=== PATIENT | male | born 1970 | race Caucasian/White ===

== ENCOUNTER 2016-10-03 12:46 | Emergency (ER) | payer OTHER ==
[2016-10-03 13:01] VITALS: TEMP 98.1
--- NOTE | 2016-10-03 13:35 | ED ---
General Adult HPI - General Chief complaint: Extremity Injury, Upper Stated complaint: Arm Pain Time Seen by Provider: 10/03/16 13:20 Source: patient, RN notes reviewed, old records reviewed Mode of arrival: ambulatory Limitations: no limitations - History of Present Illness Initial comments: Chief complaint and history of present illness is a 45-year-old male to complaint of injury to his right forearm. Patient reports her last night and I beam rolled over on his right forearm. Became significantly swollen. Place ice on it and took ibuprofen last night. Today complains discomfort from the wrist to the elbow area. Range of motion slightly decreased secondary to pain the mild swelling. Small amount of ecchymosis is noted on the volar surface at the wrist level. - Related Data Home Medications Medication Instructions Recorded Confirmed Ibuprofen [Motrin] 200 - 400 mg PO Q6HR PRN 07/06/16 07/06/16 Previous Rx's Medication Instructions Recorded traMADol HCl [Ultram] 50 mg PO Q6H PRN #20 tab 10/03/16 Allergies Allergy/AdvReac Type Severity Reaction Status Date / Time barium iodide AdvReac Swelling Verified 10/03/16 14:01 barium sulfate AdvReac Swelling Verified 10/03/16 14:01 Review of Systems ROS Statement: Those systems with pertinent positive or pertinent negative responses have been documented in the HPI. Review of systems no headache chest pain shows breath GI/ problems. His complaint is discomfort to the right forearm is noted in the chief complaint. All systems were otherwise reviewed. Past medical problems none. Surgeries appendectomy. Family history no cancers. Patient has ALLERGIES to barium. 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 ROS Other: All systems not noted in ROS Statement are negative. Past Medical History Past Medical History: No Reported History History of Any Multi-Drug Resistant Organisms: None Reported Past Surgical History: Appendectomy Past Psychological History: No Psychological Hx Reported Smoking Status: Current every day smoker Past Alcohol Use History: None Reported Past Drug Use History: None Reported General Exam - General Exam Comments Initial Comments: General: The patient is awake and alert, complaining of pain to his right forearm. Vital signs shows temperature 98.1 pulse 81 respiratory rate 20 pulse ox 94% room air blood pressure 138/88. Mildly elevated systolic diastolic noted. The patient was advised to follow-up with his family physician in the next 1-4 weeks discerning blood pressure issues. Also because of his right forearm injury. Eye: Pupils are equal, Ears, nose, mouth and throat: There are moist mucous membranes Neck: No complaint of neck pain or stiffness, lungs are without difficulty. Denies chest pain, shortness of breath, GI/ problems. Musculoskeletal: Normal ROM, tender mildly swollen right forearm. Patient reports his left hand dominant but because of previous thumb injury he is using his right arm more frequently. He reports the eye being rolled onto his right forearm was swollen last night. Applied ice. Take ibuprofen for pain. States he has some tingling to his fingertips. Able to open and close his hand family the fingers. Flex and extend at the wrist but with discomfort to the forearm. Small amount of bruising is noted on the volar surface over the wrist. Able to pronate and supinate. Able to flex and extend at the elbow. Neurological: Neurologically the patient is able to open and close his fingers flex his wrist and extend at the wrist. Palpable radial and ulnar arteries. Limitations: no limitations Course Vital Signs 10/03/16 12:59 Temperature 98.1 F Pulse Rate 81 Respiratory 20 Rate Blood Pressure 138/88 O2 Sat by Pulse 94 L Oximetry Medical Decision Making - Medical Decision Making X-ray of the right forearm was done and reviewed by radiologist's final impression is no acute fracture or dislocation as reported by Dr. Manuel Patient be placed on tramadol for pain and advised to use Motrin as well. Ice to the forearm advised to follow-up with his family physician concerning his blood pressure and forearm pain. He will be given the name of the on-call orthopedic surgeon if he develops numbness tingling or dysfunction. Currently no evidence of compartment syndrome. Disposition Clinical Impression: Contusion of right forearm, initial encounter Disposition: HOME SELF-CARE Condition: Stable Instructions: Arm Pain (ED), Crush Injury (ED) Additional Instructions: Follow-up with family physician concerning her blood pressure. Follow-up with family physician for reexamination of your right forearm. He developed numbness tingling or increased pain return emergency room or follow-up with on- call orthopedic surgeon Dr. Manuel Gudino. Use pain medication as prescribed. Prescriptions: traMADol HCl [Ultram] 50 mg PO Q6H PRN #20 tab PRN Reason: Pain Referrals: Michi Mcclure MD [Primary Care Provider] - 1-2 days Manuel Gudino MD [STAFF PHYSICIAN] - 1-2 days Time of Disposition: 15:00
--- NOTE | 2016-10-03 13:59 | XR ---
EXAMINATION TYPE: XR forearm RT DATE OF EXAM: 10/03/2016 1:56 PM COMPARISON: NONE HISTORY: Pain Two views of the forearm demonstrate that the osseous structures appear to be intact and the joint sp aces appear to be preserved. There is no acute fracture or dislocation. IMPRESSION: 1. No acute fracture or dislocation
[2016-10-03 15:08] VITALS: BP 137/78; PULSE 57; RESP 16
== END 2016-10-03 15:08 | disposition home or self-care (01) ==
LOC: EC 12:46
DX: S50.11XA Contusion of right forearm, initial encounter (principal); F17.200 Nicotine dependence, unspecified, uncomplicated; Z88.8 Allergy status to other drugs, medicaments and biological substances; W22.8XXA Striking against or struck by other objects, initial encounter
CPT/HCPCS: 99283

== ENCOUNTER 2016-10-07 12:40 | Emergency (ER) | payer OTHER ==
--- NOTE | 2016-10-07 15:14 | ED ---
General Adult HPI - General Chief complaint: Extremity Injury, Upper Stated complaint: RT ARM PAIN, PREVIOUS INJURY Time Seen by Provider: 10/07/16 15:03 Source: patient, RN notes reviewed Mode of arrival: ambulatory Limitations: no limitations - History of Present Illness Initial comments: Patient 45-year-old male who presents emergency room today with chief complaint of increased numbness tingling and pain to the right forearm and hand. Patient does admit to an injury that occurred approximately week ago. States that he was putting to IV was together when I been came pinched his right forearm. States was stuck like this for less than a minute. States he was able to push the IV back. Since he had it checked out had x-ray obtained. States he's noticed increased numbness tingling to the right hand. States worse today when he is out of the cold weather. Patient does admit that his had swelling that seemed to be worse at the end of the day. States out of pain medication that was given site little relief with ibuprofen and Ultram that he was prescribed. Patient denies any new injury or trauma. Denies any other complaints or symptoms. Patient denies any recent fever, chills, shortness of breath, chest pain, back pain, abdominal pain, nausea or vomiting, dysuria or hematuria, constipation or diarrhea, headaches or visual changes, or any other complaints. - Related Data Home Medications Medication Instructions Recorded Confirmed Ibuprofen [Motrin] 400 mg PO Q6HR PRN 07/06/16 10/07/16 Previous Rx's Medication Instructions Recorded traMADol HCl [Ultram] 50 mg PO Q6H PRN #20 tab 10/03/16 traMADol HCl [Ultram] 50 mg PO Q6H PRN #20 tab 10/07/16 Allergies Allergy/AdvReac Type Severity Reaction Status Date / Time barium iodide Allergy Anaphylaxis Verified 10/07/16 14:55 barium sulfate Allergy Anaphylaxis Verified 10/07/16 14:55 Review of Systems ROS Statement: Those systems with pertinent positive or pertinent negative responses have been documented in the HPI. ROS Other: All systems not noted in ROS Statement are negative. Past Medical History Past Medical History: No Reported History History of Any Multi-Drug Resistant Organisms: None Reported Past Surgical History: Appendectomy Past Psychological History: No Psychological Hx Reported Smoking Status: Current every day smoker Past Alcohol Use History: None Reported Past Drug Use History: None Reported General Exam - General Exam Comments Initial Comments: General: The patient is awake and alert, in no distress, and does not appear acutely ill. Neck: The neck is supple, there is no tenderness or JVD. Cardiovascular: There is a regular rate and rhythm. No murmur, rub or gallop is appreciated. Respiratory: Lungs are clear to auscultation, respirations are non-labored, breath sounds are equal. No wheezes, stridor, rales, or rhonchi. Musculoskeletal: Patient does have normal appearance of the right arm there is mild bruising to the volar aspect of the right forearm. Patient shows full range motional directions. No bony tenderness on exam. Sensations intact. Pulses equal bilaterally 2+. Cap refill less than 2 seconds. Neurological: A&O x 3. CN II-XII intact, There are no obvious motor or sensory deficits. Coordination appears grossly intact. Speech is normal. Skin: Skin is warm and dry and no rashes or lesions are noted. Psychiatric: Normal mood and affect. Limitations: no limitations Course Vital Signs 10/07/16 13:28 Temperature 98.2 F Pulse Rate 76 Respiratory 20 Rate Blood Pressure 136/67 O2 Sat by Pulse 97 Oximetry Medical Decision Making - Medical Decision Making Case discussed in detail with attending physician Dr. Hager. Patient's ultrasound negative for any evidence of DVT. Results were discussed with the patient. Patient advised to follow-up family doctor or orthopedics for further evaluation. Patient requesting pain medication here in the emergency room. He' ll be fried a short prescription of Ultram to continue as this morning was prescribed a few days ago. Advised continue anti-inflammatories continue to ice elevate the affected area. Advised return if any symptoms increase or worsen or for any other concerns. Disposition Clinical Impression: Paresthesia, Forearm contusion Disposition: HOME SELF-CARE Condition: Good Instructions: Contusion in Adults (ED) Additional Instructions: Please use medication as discussed. Please follow-up with family doctor/ orthopedics in the next 2 days of symptoms have not improved. Please return to emergency room if the symptoms increase or worsen or for any other concerns. Prescriptions: traMADol HCl [Ultram] 50 mg PO Q6H PRN #20 tab PRN Reason: Pain Referrals: Michi Mcclure MD [Primary Care Provider] - 1-2 days Dandre Bernstein MD [STAFF PHYSICIAN] - 1-2 days Time of Disposition: 15:53
--- NOTE | 2016-10-07 15:57 | US ---
EXAMINATION TYPE: US venous doppler duplex UE RT DATE OF EXAM: 10/07/2016 3:38 PM COMPARISON: NONE CLINICAL HISTORY: Pain. Numbness right hand, coldness right lower arm, pain right arm SIDE PERFORMED: right There is no evidence for filling defect. Normal compressibility and augmentation of flow. Right Arm: No evidence of DVT IMPRESSION: No evidence for DVT.
[2016-10-07 16:26] VITALS: BP 148/92; PULSE 72; RESP 18; TEMP 98
== END 2016-10-07 16:26 | disposition home or self-care (01) ==
LOC: EC 12:40
DX: S50.11XA Contusion of right forearm, initial encounter (principal); R20.2 Paresthesia of skin; W23.0XXA Caught, crushed, jammed, or pinched between moving objects, initial encounter; F17.200 Nicotine dependence, unspecified, uncomplicated; Z91.041 Radiographic dye allergy status
CPT/HCPCS: 99283

== ENCOUNTER → 2017-03-21 | Outpatient (CLI) | payer OTHER ==
--- NOTE | 2017-03-22 07:47 | EEG ---
DATE OF SERVICE: 03/21/2017 ELECTROENCEPHALOGRAPHIC EXAMINATION REPORT INDICATION FOR EXAMINATION: This patient is a 46-year-old male being evaluated for possible seizure disorder. Patient with multiple rib fractures following a fall with loss of consciousness. AGE: 46 EEG FINDINGS: A routine, 21 channel awake digital EEG recording was accomplished utilizing the 10 - 20 international system with bipolar and referential montages. The background activity in the most alert resting state consists of a low to medium amplitude, fairly well-developed and well-sustained 7 - 8 Hz activity over the posterior head regions. This posterior rhythm attenuates to eye opening. There is a small amount of low amplitude 18 - 20 Hz beta activity seen maximally over the anterior head regions. Muscle and movement artifact was observed on a few occasions during the tracing. Hyperventilation was not performed. Photic stimulation at flash frequencies of 2 - 30 Hz produced a minimal occipital driving response. No epileptiform discharges were seen. IMPRESSION: This EEG is within normal limits for the patient's age. The EEG failed to reveal any focal, lateralized, or epileptiform abnormalities. Clinical correlation is recommended. [facility]
== END ==
LOC: RADECHMAIN 12:19
PROVIDERS: ATTEND Family Medicine
DX: R55 Syncope and collapse (principal)
CPT/HCPCS: 93225; 93226; 95816

== ENCOUNTER 2017-12-04 13:15 | Emergency (ER) | payer OTHER ==
[2017-12-04 13:24] VITALS: RESP 18; TEMP 96.1
[2017-12-04] MEDS ORDERED: KETOROLAC 30 MG/ML 1 ML VIAL IVP STA ×2 (13:39→17:02)
[2017-12-04] MEDS ORDERED: SODIUM CHLORIDE 0.9% 1,000 ML IV STA (13:39)
--- NOTE | 2017-12-04 13:44 | ED ---
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 No problems since then he denies any hematuria no history kidney stones no abdominal surgeries no other modifying factors at this time he does state he does climb up and down ladders and does jump to the ground at times. He does not recall any discrete injury however. MD Complaint: abdominal pain, flank pain, other - Related Data Home Medications Medication Instructions Recorded Confirmed HYDROcodone/APAP 5-325MG [[place] 1 tab PO DAILY PRN 12/04/17 12/04/17 5-325] Ibuprofen [Motrin] 800 mg PO TID PRN 12/04/17 12/04/17 Previous Rx's Medication Instructions Recorded Doxycycline [Vibramycin] 100 mg PO Q12HR #28 capsule 12/04/17 Ibuprofen 800 mg PO Q6HR PRN #20 tablet 12/04/17 Allergies Allergy/AdvReac Type Severity Reaction Status Date / Time barium iodide Allergy Anaphylaxis Verified 12/04/17 13:30 barium sulfate Allergy Anaphylaxis Verified 12/04/17 13:30 Review of Systems ROS Statement: Those systems with pertinent positive or pertinent negative responses have been documented in the HPI. ROS Other: All systems not noted in ROS Statement are negative. Past Medical History Past Medical History: No Reported History History of Any Multi-Drug Resistant Organisms: None Reported Past Surgical History: Appendectomy Past Psychological History: No Psychological Hx Reported Smoking Status: Current every day smoker Past Alcohol Use History: Rare Past Drug Use History: None Reported General Exam - General Exam Comments Initial Comments: This is a well-developed well-nourished awake alert oriented 3 male Limitations: no limitations General appearance: alert, anxious Head exam: Present: atraumatic, normocephalic, normal inspection Eye exam: Present: normal appearance, PERRL, EOMI. Absent: scleral icterus, conjunctival injection, periorbital swelling ENT exam: Present: normal exam, mucous membranes moist Neck exam: Present: normal inspection. Absent: tenderness, meningismus, lymphadenopathy Respiratory exam: Present: normal lung sounds bilaterally. Absent: respiratory distress, wheezes, rales, rhonchi, stridor Cardiovascular Exam: Present: regular rate, normal rhythm, normal heart sounds. Absent: systolic murmur, diastolic murmur, rubs, gallop, clicks GI/Abdominal exam: Present: soft, tenderness (Mild tenderness palpation over the lower abdomen no guarding rebound masses bruits very mild flank tenderness palpation no specific CVA tenderness however.), normal bowel sounds. Absent: distended, guarding, rebound, rigid Rectal exam: Present: deferred exam: Present: testicular tenderness, scrotal swelling, circumcision, other ( Examination of the scrotum reveals 2 discrete burn sites from the injury from a week ago. Be healing well with no evidence of any erythema or drainage or discharge.) Extremities exam: Present: normal inspection, full ROM, normal capillary refill. Absent: tenderness, pedal edema, joint swelling, calf tenderness Back exam: Present: normal inspection Neurological exam: Present: alert, oriented X3, CN II-XII intact Psychiatric exam: Present: normal affect, normal mood Skin exam: Present: warm, dry, intact, normal color. Absent: rash Course Vital Signs 12/04/17 12/04/17 13:22 16:07 Temperature 96.1 F L Pulse Rate 86 77 Respiratory 18 18 Rate Blood Pressure 135/87 138/92 O2 Sat by Pulse 95 100 Oximetry Medical Decision Making - Medical Decision Making I did discuss the patient's findings be discharged on antibiotics and pain medication he'll receive his first dose in the emergency department. - Lab Data Result diagrams: 12/04/17 13:24 12/04/17 13:24 Lab Results 12/04/17 12/04/17 12/04/17 Range/Units 13:24 13:24 16:15 WBC 11.9 H (3.8-10.6) k/uL RBC 5.78 (4.30-5.90) m/uL Hgb 16.4 (13.0-17.5) gm/dL Hct 50.4 (39.0-53.0) % MCV 87.1 (80.0-100.0) fL MCH 28.4 (25.0-35.0) pg MCHC 32.6 (31.0-37.0) g/dL RDW 13.3 (11.5-15.5) % Plt Count 357 (150-450) k/uL Neutrophils % 79 % Lymphocytes % 14 % Monocytes % 4 % Eosinophils % 3 % Basophils % 1 % Neutrophils # 9.4 H (1.3-7.7) k/uL Lymphocytes # 1.6 (1.0-4.8) k/uL Monocytes # 0.4 (0-1.0) k/uL Eosinophils # 0.3 (0-0.7) k/uL Basophils # 0.1 (0-0.2) k/uL Sodium 142 (137-145) mmol/L Potassium 4.7 (3.5-5.1) mmol/L Chloride 105 (98-107) mmol/L Carbon Dioxide 26 (22-30) mmol/L Anion Gap 11 mmol/L BUN 21 H (9-20) mg/dL Creatinine 0.91 (0.66-1.25) mg/dL Est GFR (CKD-EPI)AfAm >90 (>60 ml/min/1.73 sqM) Est GFR (CKD-EPI)NonAf >90 (>60 ml/min/1.73 sqM) Glucose 83 (74-99) mg/dL Calcium 9.0 (8.4-10.2) mg/dL Total Bilirubin 0.3 (0.2-1.3) mg/dL AST 23 (17-59) U/L ALT 26 (21-72) U/L Alkaline Phosphatase 73 (38-126) U/L Total Protein 6.2 L (6.3-8.2) g/dL Albumin 3.9 (3.5-5.0) g/dL Amylase 65 (30-110) U/L Lipase 76 (23-300) U/L Urine Color Yellow Urine Appearance Clear (Clear) Urine pH 5.5 (5.0-8.0) Ur Specific [place] 1.020 (1.001-1.035) Urine Protein Negative (Negative) Urine Glucose (UA) Negative (Negative) Urine Ketones 1+ H (Negative) Urine Blood Negative (Negative) Urine Nitrite Negative (Negative) Urine Bilirubin Negative (Negative) Urine Urobilinogen <2.0 (<2.0) mg/dL Ur Leukocyte Esterase Negative (Negative) - Radiology Data Radiology results: report reviewed (I did review the imaging and report x-rays nonspecific ultrasound shows evidence of epididymitis bilaterally. Additionally there appears be some bilateral simple hydrocele incidental note of a small left varicocele), image reviewed Disposition Clinical Impression: Epididymitis, bilateral, Testicular/scrotal pain Disposition: HOME SELF-CARE Condition: Good Instructions: Epididymitis (ED), Testicle Pain (ED), Hydrocele (ED), Varicocele (ED) Prescriptions: Doxycycline [Vibramycin] 100 mg PO Q12HR #28 capsule Ibuprofen 800 mg PO Q6HR PRN #20 tablet PRN Reason: Pain Is patient prescribed a controlled substance at d/c from ED?: No Referrals: None,Stated [Primary Care Provider] - 1-2 days
[2017-12-04 14:11] LABS: Basophils # (A) 0.1 k/uL (0-0.2); Basophils % (A) 1 %; Eosinophils # (A) 0.3 k/uL (0-0.7); Eosinophils % (A) 3 %; HCT 50.4 % (39.0-53.0); HGB 16.4 gm/dL (13.0-17.5); Lymphocytes # (A) 1.6 k/uL (1.0-4.8); Lymphocytes % (A) 14 %; MCH 28.4 pg (25.0-35.0); MCHC 32.6 g/dL (31.0-37.0); MCV 87.1 fL (80.0-100.0); Mean Platelet Volume 6.7; Monocytes # (A) 0.4 k/uL (0-1.0); Monocytes % (A) 4 %; Neutrophils # (A) 9.4 k/uL (1.3-7.7); Neutrophils % (A) 79 %; Platelet Count 357 k/uL (150-450); RBC 5.78 m/uL (4.30-5.90); RDW 13.3 % (11.5-15.5); WBC 11.9 k/uL (3.8-10.6)
[2017-12-04 14:26] LABS: ALT 26 U/L (21-72); AST 23 U/L (17-59); Albumin 3.9 g/dL (3.5-5.0); Alkaline Phosphatase 73 U/L (38-126); Amylase 65 U/L (30-110); Anion Gap 11 mmol/L; Blood Urea Nitrogen 21 mg/dL (9-20); Carbon Dioxide 26 mmol/L (22-30); Chloride 105 mmol/L (98-107); Glucose 83 mg/dL (74-99); Lipase 76 U/L (23-300); Potassium 4.7 mmol/L (3.5-5.1); Sodium 142 mmol/L (137-145); Total Bilirubin 0.3 mg/dL (0.2-1.3); Total Protein 6.2 g/dL (6.3-8.2)
--- NOTE | 2017-12-04 15:53 | US ---
EXAMINATION TYPE: US scrotum with doppler. Grayscale and color Doppler Duplex imaging performed of t he scrotum. DATE OF EXAM: 12/04/2017 COMPARISON: NONE CLINICAL HISTORY: Pain and swelling . EXAM MEASUREMENTS: TESTICLES: Right Testicle: 3.9 x 2.6 x 3.0 cm Left Testicle: 3.7 x 3.0 x 3.4 cm EPIDIDYMIS HEAD: Right Epididymis: 1.7 cm Left Epididymis: 1.7 cm Doppler performed to assess for testicular vascularity; good bilateral color flow and waveforms are s een. There is no evidence of testicular torsion. Presence of hydroceles: Yes, bilaterally Presence of varicoceles: Yes, on the left Prominent and heterogeneous, hypervascular epididymis visualized bilaterally. Within the right epidym idis, there is a prominent hypoechoic, hypervascular area visualized measuring 0.4 x 0.5 x 0.6 cm. Th is may simply represent a region of heterogeneity and an overall heterogenous an hypervascular epidid ymis. There is a cystic area visualized within the left epididymis measuring 0.9 x 0.8 x 0.8 cm IMPRESSION: 1. Bilateral enlarged and heterogenous hypervascular epididymides. Findings may relate to bilateral e pididymitis without orchitis with reactive small to moderate bilateral simple appearing hydroceles. 2. Incidental note of small left varicocele.
--- NOTE | 2017-12-04 15:54 | US ---
EXAMINATION TYPE: US kidneys/renal and bladder DATE OF EXAM: 12/04/2017 COMPARISON: NONE CLINICAL HISTORY: Pain. Difficult exam due to overlying bowel gas EXAM MEASUREMENTS: Right Kidney: 11.1 x 5.1 x 4.9 cm Left Kidney: 11.5 x 6.0 x 4.3 cm Right Kidney: No hydronephrosis or masses seen. Lower pole obscured by bowel gas Left Kidney: Limited visualization due to bowel gas. No hydronephrosis or masses seen Bladder: wnl Bilateral Jets seen: No There is no evidence for hydronephrosis at this point in time. No nephrolithiasis is seen. No bao s are identified. The urinary bladder is anechoic. IMPRESSION: No sonographic evidence of hydronephrosis or nephrolithiasis. No evidence of medical renal disease.
--- NOTE | 2017-12-04 16:05 | XR ---
EXAMINATION TYPE: XR KUB DATE OF EXAM: 12/04/2017 3:59 PM CLINICAL HISTORY: Lower abdominal pain TECHNIQUE: Two Upright KUB images of the abdomen are obtained. COMPARISON: CT abdomen and pelvis November 20, 2012 FINDINGS: Scattered gas is seen in non-distended stomach and small bowel loops. Gas and fecal materia l is seen in non-distended colon and rectum. There is no visceromegaly, pneumoperitoneum, or abnormal calcification appreciated. The lung bases are clear and the osseous structures are intact. IMPRESSION: Overall nonobstructive bowel gas pattern.
[2017-12-04 16:22] LABS: Appearance,Urine Clear (Clear); Bilirubin,Urine Negative (Negative); Blood,Urine Negative (Negative); Color,Urine Yellow; Glucose,Urine (UA) Negative (Negative); Ketones,Urine 1+ (Negative); Leukocyte Esterase,Urine Negative (Negative); Nitrite,Urine Negative (Negative); PH, Urine 5.5 (5.0-8.0); Protein,Urine Negative (Negative); Urobilinogen,Urine <2.0 mg/dL (<2.0)
[2017-12-04] MEDS ORDERED: cefTRIAXone IN SWFI 1,000 MG/10 ML SYRINGE IVP STA (17:01)
[2017-12-04 17:52] VITALS: BP 140/70; PULSE 83
== END 2017-12-04 18:03 | disposition home or self-care (01) ==
LOC: EC 13:15
DX: N45.1 Epididymitis (principal); F17.200 Nicotine dependence, unspecified, uncomplicated; Z90.49 Acquired absence of other specified parts of digestive tract; Z88.8 Allergy status to other drugs, medicaments and biological substances
CPT/HCPCS: 36415; 80053; 82150; 83690; 85025; 81003; 74018; 93975; 76870; 76770; 99284; 96374; 96375 ×2; 96361 ×4; J0696; J1885

== ENCOUNTER 2018-05-21 21:00 | Emergency (ER) | payer OTHER ==
[2018-05-21 21:05] VITALS: TEMP 97.6
[2018-05-21] MEDS ORDERED: MORPHINE SULFATE 4 MG/ML SYRINGE IV STA (21:44)
--- NOTE | 2018-05-21 21:48 | ED ---
Male Urogenital HPI - General Chief complaint: Urogenital Stated complaint: abdominal pain Time Seen by Provider: 05/21/18 21:07 Source: patient Mode of arrival: ambulatory Limitations: no limitations - History of Present Illness Initial comments: This patient is a 47-year-old man who complains of having approximately one month of bilateral testicular pain and low abdominal pain. The patient states that he had onset with left testicular pain proximally month ago. He states that it was so severe that actually prevented him from going back to work. He states that he has missed work for number weeks now. He notes that the pain is now affecting the lower abdomen. He has not noted fever or chills. No nausea or vomiting. He states that he may be having more frequent bowel movements but has noted no other changes there. He is not able to characterize the pain well other than stating that it hurts and it is severe. Pain is constant. Pain is worse if he touches the left scrotum. MD Complaint: testicle pain, testicle swelling Onset/Timin -: month(s) Location: right testicle, left testicle Radiation: other (Low abdomen) Severity: severe Quality: aching Consistency: constant Improves with: none Worsens with: none Reports: denies other symptoms - Related Data Home Medications Medication Instructions Recorded Confirmed Ibuprofen [Motrin Ib] 400 mg PO BID 05/21/18 05/21/18 Previous Rx's Medication Instructions Recorded Doxycycline Hyclate [Vibramycin] 100 mg PO BID #28 cap 05/22/18 Ibuprofen 800 mg PO Q8H PRN #24 tablet 05/22/18 Allergies Allergy/AdvReac Type Severity Reaction Status Date / Time barium iodide Allergy Anaphylaxis Verified 05/21/18 21:28 barium sulfate Allergy Anaphylaxis Verified 05/21/18 21:28 Review of Systems ROS Statement: Those systems with pertinent positive or pertinent negative responses have been documented in the HPI. ROS Other: All systems not noted in ROS Statement are negative. Constitutional: Denies: fever, chills, weakness Respiratory: Denies: cough, dyspnea Cardiovascular: Denies: chest pain, palpitations, orthopnea, edema Gastrointestinal: Reports: abdominal pain. Denies: nausea, vomiting, diarrhea, constipation, melena, hematochezia Genitourinary: Reports: as per HPI, testicular pain, testicular mass. Denies: dysuria, frequency, hematuria, discharge Musculoskeletal: Denies: back pain Skin: Denies: rash Neurological: Denies: headache Past Medical History Past Medical History: No Reported History History of Any Multi-Drug Resistant Organisms: None Reported Past Surgical History: Appendectomy Past Psychological History: No Psychological Hx Reported Smoking Status: Current every day smoker Past Alcohol Use History: None Reported Past Drug Use History: None Reported General Exam Limitations: no limitations General appearance: alert, in no apparent distress Head exam: Present: atraumatic, normocephalic Eye exam: Present: normal appearance. Absent: scleral icterus, conjunctival injection Respiratory exam: Present: normal lung sounds bilaterally. Absent: respiratory distress, wheezes, rales, rhonchi, stridor Cardiovascular Exam: Present: regular rate (Heart rate is 96 at my exam), normal rhythm, normal heart sounds. Absent: systolic murmur, diastolic murmur, rubs, gallop GI/Abdominal exam: Present: soft. Absent: distended, tenderness, guarding, rebound, rigid, mass, pulsatile mass exam: Present: testicular tenderness (Left), scrotal swelling (Left), circumcision Back exam: Present: normal inspection. Absent: CVA tenderness (R), CVA tenderness (L) Neurological exam: Present: alert Skin exam: Present: warm, dry, intact, normal color. Absent: rash Course Vital Signs 05/21/18 21:01 Temperature 97.6 F Pulse Rate 105 H Respiratory 18 Rate Blood Pressure 125/85 O2 Sat by Pulse 98 Oximetry Medical Decision Making - Lab Data Result diagrams: 05/21/18 22:07 05/21/18 22:07 Lab Results 05/21/18 05/21/18 05/21/18 Range/Units 22:07 22:07 22:07 WBC 11.0 H (3.8-10.6) k/uL RBC 5.49 (4.30-5.90) m/uL Hgb 15.8 (13.0-17.5) gm/dL Hct 48.0 (39.0-53.0) % MCV 87.5 (80.0-100.0) fL MCH 28.8 (25.0-35.0) pg MCHC 33.0 (31.0-37.0) g/dL RDW 13.2 (11.5-15.5) % Plt Count 384 (150-450) k/uL Neutrophils % 69 % Lymphocytes % 22 % Monocytes % 4 % Eosinophils % 3 % Basophils % 1 % Neutrophils # 7.7 (1.3-7.7) k/uL Lymphocytes # 2.4 (1.0-4.8) k/uL Monocytes # 0.5 (0-1.0) k/uL Eosinophils # 0.3 (0-0.7) k/uL Basophils # 0.1 (0-0.2) k/uL Sodium 140 (137-145) mmol/L Potassium 4.1 (3.5-5.1) mmol/L Chloride 102 (98-107) mmol/L Carbon Dioxide 28 (22-30) mmol/L Anion Gap 10 mmol/L BUN 18 (9-20) mg/dL Creatinine 0.81 (0.66-1.25) mg/dL Est GFR (CKD-EPI)AfAm >90 (>60 ml/min/1.73 sqM) Est GFR (CKD-EPI)NonAf >90 (>60 ml/min/1.73 sqM) Glucose 93 (74-99) mg/dL Calcium 9.4 (8.4-10.2) mg/dL Total Bilirubin 0.6 (0.2-1.3) mg/dL AST 20 (17-59) U/L ALT 27 (21-72) U/L Alkaline Phosphatase 63 (38-126) U/L Total Protein 6.7 (6.3-8.2) g/dL Albumin 3.9 (3.5-5.0) g/dL Urine Color Yellow Urine Appearance Clear (Clear) Urine pH 7.0 (5.0-8.0) Ur Specific [place] >1.050 H (1.001-1.035) Urine Protein Negative (Negative) Urine Glucose (UA) Negative (Negative) Urine Ketones Negative (Negative) Urine Blood Negative (Negative) Urine Nitrite Negative (Negative) Urine Bilirubin Negative (Negative) Urine Urobilinogen <2.0 (<2.0) mg/dL Ur Leukocyte Esterase Negative (Negative) Disposition Clinical Impression: Epididymitis Disposition: HOME SELF-CARE Condition: Fair Instructions: Epididymitis (ED) Prescriptions: Doxycycline Hyclate [Vibramycin] 100 mg PO BID #28 cap Ibuprofen 800 mg PO Q8H PRN #24 tablet PRN Reason: Pain Is patient prescribed a controlled substance at d/c from ED?: No Referrals: None,Stated [Primary Care Provider] - 1-2 days
--- NOTE | 2018-05-21 22:50 | CT ---
EXAMINATION TYPE: CT abdomen pelvis w con DATE OF EXAM: 05/21/2018 COMPARISON: 11/20/2012 HISTORY: Generalized Abdominal pain and testicular pain without trauma CT DLP: 759.8 mGycm Automated exposure control for dose reduction was used. TECHNIQUE: Helical acquisition of images was performed from the lung bases through the pelvis. CONTRAST: Performed without Oral Contrast and with IV Contrast, patient injected with 100 mL of Isovue 370. FINDINGS: Lung bases are clear. There is no pleural effusion. Heart size is normal. Liver spleen pancreas gallb ladder appear normal. Bile ducts are not dilated. Stomach is large. There is no adrenal mass. Kidneys show satisfactory contrast opacification. There is no hydronephrosi s. Ureters are not dilated. There is no retroperitoneal adenopathy. There is no mesenteric adenopathy or edema. I see no intestinal wall thickening. There are no dilated loops. Bladder distends smoothly . There is no free fluid in the pelvis. There is symmetric relative thickening and edema of the spermatic cord that is a change compared to o ld exam. There is no inguinal hernia or adenopathy. Appendix is not seen. There is no sign of appendicitis. Sarah mbar spine is intact. I see no bony destructive process. The bony pelvis is intact. IMPRESSION: NEGATIVE CT SCAN OF THE ABDOMEN AND PELVIS. COMPARED TO OLD CT SCAN THERE IS SYMMETRICAL THICKENING O F THE SPERMATIC CORD THAT COULD RELATE TO INFLAMMATORY PROCESS.
[2018-05-21 22:52] LABS: Appearance,Urine Clear (Clear); Basophils # (A) 0.1 k/uL (0-0.2); Basophils % (A) 1 %; Bilirubin,Urine Negative (Negative); Blood,Urine Negative (Negative); Color,Urine Yellow; Eosinophils # (A) 0.3 k/uL (0-0.7); Eosinophils % (A) 3 %; Glucose,Urine (UA) Negative (Negative); HGB 15.8 gm/dL (13.0-17.5); Ketones,Urine Negative (Negative); Leukocyte Esterase,Urine Negative (Negative); Lymphocytes # (A) 2.4 k/uL (1.0-4.8); Lymphocytes % (A) 22 %; MCH 28.8 pg (25.0-35.0); MCV 87.5 fL (80.0-100.0); Mean Platelet Volume 5.9; Monocytes # (A) 0.5 k/uL (0-1.0); Monocytes % (A) 4 %; Neutrophils # (A) 7.7 k/uL (1.3-7.7); Neutrophils % (A) 69 %; Nitrite,Urine Negative (Negative); Platelet Count 384 k/uL (150-450); Protein,Urine Negative (Negative); RBC 5.49 m/uL (4.30-5.90); RDW 13.2 % (11.5-15.5); Urobilinogen,Urine <2.0 mg/dL (<2.0)
[2018-05-21 23:02] LABS: Specific Gravity,Urine >1.050 (1.001-1.035)
[2018-05-21 23:04] LABS: ALT 27 U/L (21-72); AST 20 U/L (17-59); Albumin 3.9 g/dL (3.5-5.0); Alkaline Phosphatase 63 U/L (38-126); Anion Gap 10 mmol/L; Blood Urea Nitrogen 18 mg/dL (9-20); Calcium 9.4 mg/dL (8.4-10.2); Carbon Dioxide 28 mmol/L (22-30); Chloride 102 mmol/L (98-107); Glucose 93 mg/dL (74-99); Potassium 4.1 mmol/L (3.5-5.1); Sodium 140 mmol/L (137-145); Total Bilirubin 0.6 mg/dL (0.2-1.3); Total Protein 6.7 g/dL (6.3-8.2)
--- NOTE | 2018-05-21 23:55 | US ---
EXAMINATION TYPE: US scrotum with doppler. Grayscale and color Doppler Duplex imaging performed of melissa mora scrotum. DATE OF EXAM: 05/21/2018 COMPARISON: NONE CLINICAL HISTORY: Pain. Pain EXAM MEASUREMENTS: TESTICLES: Right Testicle: 3.0 x 2.6 x 3.1 cm Left Testicle: 3.0 x 2.3 x 3.0 cm EPIDIDYMIS HEAD: Right Epididymis: .8 cm Cystic area .4cm. Left Epididymis: 2.4 cm Heterogenous enlarged cystic area 1.8cm. Doppler performed to assess for testicular vascularity; good bilateral color flow and waveforms are s een. There is no evidence of testicular torsion. Presence of hydroceles: YES Presence of varicoceles: NO IMPRESSION: No evidence of testicular torsion or mass. Bilateral epididymal cysts. Mild bilateral hyd roceles.
[2018-05-22] MEDS ORDERED: DOXYCYCLINE 100 MG CAP PO STA (00:06)
[2018-05-22] MEDS ORDERED: KETOROLAC 30 MG/ML 1 ML VIAL IVP STA (01:20)
[2018-05-22 01:31] VITALS: BP 124/78; PULSE 85; RESP 16
[2018-05-23 16:03] LABS: C. trachomatis,PCR Negative (Neg,Equiv); Chlamydia trachomatis Source Urine; N. gonorrhoeae,PCR Negative (Neg,Equiv); Neisseria Source Urine
== END 2018-05-22 01:35 | disposition home or self-care (01) ==
LOC: EC 21:00
DX: N45.1 Epididymitis (principal); F17.200 Nicotine dependence, unspecified, uncomplicated; Z79.1 Long term (current) use of non-steroidal anti-inflammatories (NSAID); Z88.8 Allergy status to other drugs, medicaments and biological substances; Z90.49 Acquired absence of other specified parts of digestive tract
CPT/HCPCS: 36415; 80053; 85025; 81003; 87491; 87591; 93975; 76870; 74177; 99284; 96365; 96375 ×2; J2270; J0696; J1885; Q9967

== ENCOUNTER 2019-01-02 22:44 | Emergency (ER) | payer OTHER ==
[2019-01-02] MEDS ORDERED: HYDROmorphone 1 MG/ML 1 ML SYRINGE IVP STA (23:18)
[2019-01-02] MEDS ORDERED: ONDANSETRON 4 MG/2 ML VIAL IVP STA (23:18)
[2019-01-02 23:32] VITALS: RESP 18
[2019-01-02 23:38] LABS: Basophils # (A) 0.1 k/uL (0-0.2); Basophils % (A) 1 %; Eosinophils # (A) 0.4 k/uL (0-0.7); Eosinophils % (A) 5 %; HCT 47.4 % (39.0-53.0); Lymphocytes # (A) 2.5 k/uL (1.0-4.8); Lymphocytes % (A) 28 %; MCH 27.6 pg (25.0-35.0); MCHC 31.5 g/dL (31.0-37.0); MCV 87.7 fL (80.0-100.0); Mean Platelet Volume 6.2; Monocytes # (A) 0.3 k/uL (0-1.0); Monocytes % (A) 4 %; Neutrophils # (A) 5.4 k/uL (1.3-7.7); Neutrophils % (A) 61 %; Platelet Count 425 k/uL (150-450); RBC 5.41 m/uL (4.30-5.90); RDW 13.6 % (11.5-15.5); WBC 8.8 k/uL (3.8-10.6)
--- NOTE | 2019-01-03 00:15 | ED ---
General Adult HPI - General Source: patient, RN notes reviewed Mode of arrival: ambulatory Limitations: no limitations <Kendrick Nielson - Last Filed: 01/03/19 00:59> <Kendrick Burkett - Last Filed: 01/03/19 03:25> - General Chief complaint: Urogenital Stated complaint: Hernia Time Seen by Provider: 01/02/19 23:00 - History of Present Illness Initial comments: This is a 48-year-old male who presents emergency Department complaining of bilateral inguinal testicle pain. Patient also states the pain radiates up into his abdomen. Patient states the first time he had this pain was about a year ago and it gets so severe at times that he has vomited. Patient denies any dysuria or hematuria. Patient states she's had multiple ultrasounds that show infection and cysts in the past. Patient states he hadn't had insurance before so he has not been able to follow up but now he has insurance. Patient states the pain is excruciating and he can't stand anymore so he had to come back in. Patient states touching the inguinal areas or the testicles causes him severe pain but the pain is also relating up into his lower abdomen which is quite significant. Patient denies any fever chills. Patient denies any vomiting or diarrhea recently. (Kendrick Nielson) - Related Data Previous Rx's Medication Instructions Recorded Ciprofloxacin HCl [Cipro] 500 mg PO Q12HR #28 tablet 01/03/19 Allergies Allergy/AdvReac Type Severity Reaction Status Date / Time barium iodide Allergy Anaphylaxis Verified 01/03/19 00:04 barium sulfate Allergy Anaphylaxis Verified 01/03/19 00:04 Review of Systems ROS Other: All systems not noted in ROS Statement are negative. <Kendrick Nielson - Last Filed: 01/03/19 00:59> ROS Other: All systems not noted in ROS Statement are negative. <Kendrick Burkett - Last Filed: 01/03/19 03:25> ROS Statement: Those systems with pertinent positive or pertinent negative responses have been documented in the HPI. Past Medical History Past Medical History: No Reported History History of Any Multi-Drug Resistant Organisms: None Reported Past Surgical History: Appendectomy Past Psychological History: No Psychological Hx Reported Smoking Status: Current every day smoker Past Alcohol Use History: None Reported Past Drug Use History: None Reported <Kendrick Nielson - Last Filed: 01/03/19 00:59> General Exam Limitations: no limitations <Kendrick Nielson - Last Filed: 01/03/19 00:59> - General Exam Comments Initial Comments: GENERAL: Patient is well-developed and well-nourished. Patient is nontoxic and well- hydrated and is in moderate distress. ENT: Neck is soft and supple. No significant lymphadenopathy is noted. Oropharynx i s clear. Moist mucous membranes. Neck has full range of motion without eliciting any pain. EYES: The sclera were anicteric and conjunctiva were pink and moist. Extraocular movements were intact and pupils were equal round and reactive to light. Eyelids were unremarkable. PULMONARY: Unlabored respirations. Good breath sounds bilaterally. No audible rales rhonchi or wheezing was noted. CARDIOVASCULAR: There is a regular rate and rhythm without any murmurs gallops or rubs. ABDOMEN: Soft and nontender with normal bowel sounds. No palpable organomegaly was noted. There is no palpable pulsatile mass. GENITALIA: Bilateral testicles are noted but there tender to palpation there is fullness and bilateral inguinal canals with a cylindrical structure which is extremely tender to palpate as well. Patient's abdomen is mildly tender in the suprapubic region. SKIN: Skin is clear with no lesions or rashes and otherwise unremarkable. NEUROLOGIC: Patient is alert and oriented x3. Cranial nerves II through XII are grossly intact. Motor and sensory are also intact. Normal speech, volume and content. Symmetrical smile. MUSCULOSKELETAL: Normal extremities with adequate strength and full range of motion. LYMPHATICS: No significant lymphadenopathy is noted PSYCHIATRIC: Normal psychiatric evaluation. (Kendrick Nielson) Course <ChaKendrick funes B - Last Filed: 01/03/19 03:25> Vital Signs 01/02/19 01/02/19 01/03/19 22:50 23:31 02:23 Temperature 97.3 F L 97.0 F L Pulse Rate 103 H 85 86 Respiratory 20 18 18 Rate Blood Pressure 145/96 134/88 140/94 O2 Sat by Pulse 98 99 99 Oximetry 01/03/19 03:18 Temperature 97.2 F L Pulse Rate 88 Respiratory 18 Rate Blood Pressure 147/98 O2 Sat by Pulse 100 Oximetry - Reevaluation(s) Reevaluation #1: 01/03/19 03:24 Patient currently has adequate pain control (Kendrick Burkett) Reevaluation #2: 01/03/19 03:24 Sit outpatient scarring findings of both CAT scan and ultrasound, patient is declining observation for urology evaluation currently, states he does have a urologist that is scheduled to follow up with [facility] that appointment. (Kendrick Burkett) Medical Decision Making - Lab Data Result diagrams: 01/02/19 23:25 01/02/19 23:25 <Kendrick Nielson - Last Filed: 01/03/19 00:59> - Lab Data Result diagrams: 01/02/19 23:25 01/02/19 23:25 - Radiology Data Radiology results: report reviewed (CT head and pelvis show significant sporadic cord likely varicocele, patient also does have ultrasound showing positive epididymitis orchitis. Varicocele. Possible spermatocele or abscess), image reviewed <Kendrick Burkett - Last Filed: 01/03/19 03:25> - Medical Decision Making Dr. Burkett will be taking over the care of this patient at 1 AM (Kendrick Grant) 48 male the ER for evasive significant testicular pain, urine will be cultured, patient placed on antibiotics and pain control, will follow-up with urology for evaluation of varicocele versus epididymitis versus testicular abscess or mass. (Kendrick Burkett) - Lab Data Lab Results 01/02/19 01/02/19 01/02/19 Range/Units 23:25 23:25 23:25 WBC 8.8 (3.8-10.6) k/uL RBC 5.41 (4.30-5.90) m/uL Hgb 15.0 (13.0-17.5) gm/dL Hct 47.4 (39.0-53.0) % MCV 87.7 (80.0-100.0) fL MCH 27.6 (25.0-35.0) pg MCHC 31.5 (31.0-37.0) g/dL RDW 13.6 (11.5-15.5) % Plt Count 425 (150-450) k/uL Neutrophils % 61 % Lymphocytes % 28 % Monocytes % 4 % Eosinophils % 5 % Basophils % 1 % Neutrophils # 5.4 (1.3-7.7) k/uL Lymphocytes # 2.5 (1.0-4.8) k/uL Monocytes # 0.3 (0-1.0) k/uL Eosinophils # 0.4 (0-0.7) k/uL Basophils # 0.1 (0-0.2) k/uL Sodium 139 (137-145) mmol/L Potassium 4.3 (3.5-5.1) mmol/L Chloride 106 (98-107) mmol/L Carbon Dioxide 27 (22-30) mmol/L Anion Gap 6 mmol/L BUN 19 (9-20) mg/dL Creatinine 0.83 (0.66-1.25) mg/dL Est GFR (CKD-EPI)AfAm >90 (>60 ml/min/1.73 sqM) Est GFR (CKD-EPI)NonAf >90 (>60 ml/min/1.73 sqM) Glucose 91 (74-99) mg/dL Plasma Lactic Acid [place] 1.6 (0.7-2.0) mmol/L Calcium 9.2 (8.4-10.2) mg/dL Total Bilirubin 0.3 (0.2-1.3) mg/dL AST 21 (17-59) U/L ALT 16 L (21-72) U/L Alkaline Phosphatase 73 (38-126) U/L Total Protein 6.6 (6.3-8.2) g/dL Albumin 3.9 (3.5-5.0) g/dL Amylase 77 (30-110) U/L Lipase 85 (23-300) U/L Urine Color Urine Appearance (Clear) Urine pH (5.0-8.0) Ur Specific [place] (1.001-1.035) Urine Protein (Negative) Urine Glucose (UA) (Negative) Urine Ketones (Negative) Urine Blood (Negative) Urine Nitrite (Negative) Urine Bilirubin (Negative) Urine Urobilinogen (<2.0) mg/dL Ur Leukocyte Esterase (Negative) 01/03/19 Range/Units 00:30 WBC (3.8-10.6) k/uL RBC (4.30-5.90) m/uL Hgb (13.0-17.5) gm/dL Hct (39.0-53.0) % MCV (80.0-100.0) fL MCH (25.0-35.0) pg MCHC (31.0-37.0) g/dL RDW (11.5-15.5) % Plt Count (150-450) k/uL Neutrophils % % Lymphocytes % % Monocytes % % Eosinophils % % Basophils % % Neutrophils # (1.3-7.7) k/uL Lymphocytes # (1.0-4.8) k/uL Monocytes # (0-1.0) k/uL Eosinophils # (0-0.7) k/uL Basophils # (0-0.2) k/uL Sodium (137-145) mmol/L Potassium (3.5-5.1) mmol/L Chloride (98-107) mmol/L Carbon Dioxide (22-30) mmol/L Anion Gap mmol/L BUN (9-20) mg/dL Creatinine (0.66-1.25) mg/dL Est GFR (CKD-EPI)AfAm (>60 ml/min/1.73 sqM) Est GFR (CKD-EPI)NonAf (>60 ml/min/1.73 sqM) Glucose (74-99) mg/dL Plasma Lactic Acid [place] (0.7-2.0) mmol/L Calcium (8.4-10.2) mg/dL Total Bilirubin (0.2-1.3) mg/dL AST (17-59) U/L ALT (21-72) U/L Alkaline Phosphatase (38-126) U/L Total Protein (6.3-8.2) g/dL Albumin (3.5-5.0) g/dL Amylase (30-110) U/L Lipase (23-300) U/L Urine Color Yellow Urine Appearance Clear (Clear) Urine pH 6.5 (5.0-8.0) Ur Specific [place] 1.038 H (1.001-1.035) Urine Protein Negative (Negative) Urine Glucose (UA) Negative (Negative) Urine Ketones Negative (Negative) Urine Blood Negative (Negative) Urine Nitrite Negative (Negative) Urine Bilirubin Negative (Negative) Urine Urobilinogen <2.0 (<2.0) mg/dL Ur Leukocyte Esterase Negative (Negative) Disposition <Kendrick Nielson - Last Filed: 01/03/19 00:59> Is patient prescribed a controlled substance at d/c from ED?: No <Kendrick Burkett - Last Filed: 01/03/19 03:25> Clinical Impression: Bilateral orchitis, Bilateral varicoceles, Spermatocele, Testicular abscess Disposition: HOME SELF-CARE Instructions (If sedation given, give patient instructions): Epididymitis (ED), Epididymo-Orchitis (ED), Testicle Pain (ED) Prescriptions: Ciprofloxacin HCl [Cipro] 500 mg PO Q12HR #28 tablet Referrals: Anil Lockwood MD [STAFF PHYSICIAN] - 1-2 days
[2019-01-03 00:17] LABS: ALT 16 U/L (21-72); AST 21 U/L (17-59); Albumin 3.9 g/dL (3.5-5.0); Alkaline Phosphatase 73 U/L (38-126); Amylase 77 U/L (30-110); Anion Gap 6 mmol/L; Blood Urea Nitrogen 19 mg/dL (9-20); Calcium 9.2 mg/dL (8.4-10.2); Carbon Dioxide 27 mmol/L (22-30); Chloride 106 mmol/L (98-107); Glucose 91 mg/dL (74-99); Lipase 85 U/L (23-300); Potassium 4.3 mmol/L (3.5-5.1); Sodium 139 mmol/L (137-145); Total Bilirubin 0.3 mg/dL (0.2-1.3); Total Protein 6.6 g/dL (6.3-8.2)
[2019-01-03 01:01] LABS: Appearance,Urine Clear (Clear); Bilirubin,Urine Negative (Negative); Blood,Urine Negative (Negative); Color,Urine Yellow; Glucose,Urine (UA) Negative (Negative); Ketones,Urine Negative (Negative); Leukocyte Esterase,Urine Negative (Negative); Nitrite,Urine Negative (Negative); PH, Urine 6.5 (5.0-8.0); Protein,Urine Negative (Negative); Specific Gravity,Urine 1.038 (1.001-1.035); Urobilinogen,Urine <2.0 mg/dL (<2.0)
--- NOTE | 2019-01-03 01:57 | CT ---
EXAM: CT Abdomen and Pelvis With Intravenous Contrast CLINICAL HISTORY: ITS.REASON CT Reason: Pain TECHNIQUE: Axial computed tomography images of the abdomen and pelvis with intravenous contrast. CTDI is 18.2 mGy and DLP is 909.7 mGy-cm. This CT exam was performed using one or more of the following dose reduction techniques: automated exposure control, adjustment of the mA and/or kV according to patient size, and/or use of iterative reconstruction technique. COMPARISON: CT abdomen-pelvis 05/21/2018 FINDINGS: Lung bases: Imaged lung bases are clear. ABDOMEN: Liver: Liver is unremarkable. Gallbladder and bile ducts: Gallbladder is unremarkable. No calcified stones. No evidence of biliary dilatation. Pancreas: Pancreas is unremarkable except for mild prominence of pancreatic duct which appears chronic and unchanged. Spleen: Spleen is unremarkable. Adrenals: No adrenal masses. Kidneys and ureters: Bilateral renal enhancement and contrast excretion. No evidence of renal calculi or hydronephrosis. Stomach and bowel: No evidence of bowel obstruction or pneumoperitoneum. Colon is incompletely distended limiting colonic evaluation. Colonic diverticulosis. No definite evidence of diverticulitis. PELVIS: Appendix: Appendix not clearly identified. No secondary findings of appendicitis. Bladder: Urinary bladder is unremarkable. No bladder calculi. Reproductive: See below. ABDOMEN and PELVIS: Intraperitoneal space: See above. Bones/joints: Lumbar spine degenerative changes. No acute bony abnormalities identified. Soft tissues: Low density along inguinal canals bilaterally raising possibility of bilateral hydroceles. Vasculature: No abdominal aortic aneurysm. Lymph nodes: No evidence of lymphadenopathy. IMPRESSION: No evidence of acute abdominal-pelvic process. Findings raising possibility of bilateral hydroceles.
--- NOTE | 2019-01-03 03:01 | US ---
EXAM: US Scrotum CLINICAL HISTORY: ITS.REASON US Reason: Pain TECHNIQUE: Real-time ultrasound of the scrotum with color Doppler and image documentation. COMPARISON: CT abdomen-pelvis 01/03/2019 FINDINGS: Right testicle: Right Testicle measures 3.9 x 2.2 x 1.8 cm. No testicular mass. Doppler vascular flow signal identified. Left testicle: Left Testicle measures 3.8 x 2.0 x 2.2 cm. No testicular mass. Doppler vascular flow signal identified. Epididymides: Right Epididymis: Prominent right epididymis with increased vascularity. Left Epididymis: Prominent left epididymis with increased vascularity. Complex mass measuring 1.5 x 1.3 x 1.3cm in region of epididymal head. Scrotum: Moderate bilateral hydroceles. IMPRESSION: No evidence of testicular torsion. Prominent bilateral epidermides with increased vascularity raising possibility of bilateral epididymitis. 1.5 cm complex mass related to the left epididymal head raising possibility of spermatocele. Epididymal abscess would be differential possibility. Clinical correlation is recommended. Moderate bilateral hydroceles. <MYCVCSECTION> Critical Value Communications 01/03/19 03:06 Verify Receipt Verified receipt with Sherrie in ER Dr. Burkett
[2019-01-03] MEDS ORDERED: ACET/COD 300 MG/30 MG STARTER PACK 6 TAB BTL PO STA (03:18)
[2019-01-03] MEDS ORDERED: CIPROFLOXACIN HCL 500 MG TAB PO STA (03:18)
[2019-01-03 03:20] VITALS: BP 147/98; PULSE 88; TEMP 97.2
[2019-01-03] MEDS ORDERED: cefTRIAXone IN SWFI 1,000 MG/10 ML SYRINGE IVP ONE (04:00)
[2019-01-04 14:21] LABS: N. gonorrhoeae,PCR Negative (Neg,Equiv); Neisseria Source Urine
[2019-01-04 14:25] LABS: C. trachomatis,PCR Negative (Neg,Equiv); Chlamydia trachomatis Source Urine
== END 2019-01-03 03:52 | disposition home or self-care (01) ==
LOC: EC 22:44
DX: N45.4 Abscess of epididymis or testis (principal); I86.1 Scrotal varices; N45.2 Orchitis; N43.40 Spermatocele of epididymis, unspecified; F17.200 Nicotine dependence, unspecified, uncomplicated; Z91.041 Radiographic dye allergy status; Z91.048 Other nonmedicinal substance allergy status; Z90.49 Acquired absence of other specified parts of digestive tract
CPT/HCPCS: 36415; 80053; 82150; 83605; 83690; 85025; 99284; 96374; 96375 ×2; J2405; J1170; 74177; 76870; 81003; 87086; 87491; 87591; 93975

== ENCOUNTER 2020-06-12 15:19 | Observation (INO) | payer OTHER ==
[2020-06-12] MEDS ORDERED: LIDOCAINE 1% INJ 10MG/ML (20 ML MDV) SQ ONE (16:57)
[2020-06-12] MEDS ORDERED: AMPICILLIN-SULBACTAM 3 GM in SODIUM CHLORIDE 0.9% 100 ML IVPB STA (17:30)
[2020-06-12] MEDS ORDERED: VANCOMYCIN IV PER PHARMACY 1 EACH MISC MISCELLANE PRN (17:32)
[2020-06-12 17:34] LABS: Basophils # (A) 0.2 k/uL (0-0.2); Basophils % (A) 2 %; Eosinophils # (A) 0.3 k/uL (0-0.7); Eosinophils % (A) 3 %; HCT 50.3 % (39.0-53.0); HGB 16.1 gm/dL (13.0-17.5); Lymphocytes % (A) 18 %; MCH 29.1 pg (25.0-35.0); MCV 90.9 fL (80.0-100.0); Mean Platelet Volume 6.4; Monocytes # (A) 0.6 k/uL (0-1.0); Monocytes % (A) 5 %; Neutrophils # (A) 7.9 k/uL (1.3-7.7); Neutrophils % (A) 71 %; Platelet Count 335 k/uL (150-450); RBC 5.53 m/uL (4.30-5.90); RDW 13.1 % (11.5-15.5); WBC 11.2 k/uL (3.8-10.6)
[2020-06-12] MEDS ORDERED: VANCOMYCIN 1,500 MG in SODIUM CHLORIDE 0.9% 250 ML IVPB STA (17:37)
[2020-06-12 17:46] LABS: ALT 26 U/L (4-49); AST 40 U/L (17-59); African American GFR (CKD) >90 (>60 ml/min/1.73 sqM); Albumin 3.8 g/dL (3.5-5.0); Alkaline Phosphatase 64 U/L (38-126); Anion Gap 6 mmol/L; Blood Urea Nitrogen 13 mg/dL (9-20); C Reactive Protein 5.6 mg/L (<10.0); Calcium 8.9 mg/dL (8.4-10.2); Carbon Dioxide 25 mmol/L (22-30); Chloride 107 mmol/L (98-107); Glucose 85 mg/dL (74-99); Non-African American GFR(CKD) 86 (>60 ml/min/1.73 sqM); Potassium 4.1 mmol/L (3.5-5.1); Sodium 138 mmol/L (137-145); Total Bilirubin 1.1 mg/dL (0.2-1.3); Total Protein 6.3 g/dL (6.3-8.2)
[2020-06-12 18:09] LABS: Erythrocyte Sedimentation Rate 2 mm/hr (0-15)
[2020-06-12] MEDS ORDERED: NALOXONE 0.4 MG/ML 1 ML VIAL IV PRN (19:05)
--- NOTE | 2020-06-12 19:05 | ED ---
General Adult HPI - General Chief complaint: Skin/Abscess/Foreign Body Stated complaint: Wound on leg Time Seen by Provider: 06/12/20 16:42 Source: patient Mode of arrival: ambulatory Limitations: no limitations - History of Present Illness Initial comments: Patient is a 49-year-old male with no reported past medical history presents emergency department reported abscess to his right thigh. Patient states it started off as a small pimple yesterday. He wanted to [facility] who put him on antibiotics. He has been taking Bactrim one tablet, twice daily and states that the abscess has gotten bigger and started having pustular drainage. Patient also developed an additional abscess on his proximal thigh, several on his genitalia and one on the right side of his penile shaft. He does have concern for sexually transmitted infections. No history of MRSA. Denies any fevers or chills. Abscess was not drained yesterday at [facility]. Due to the rapidly expanding symptoms patient came back in July for evaluation. Denies any abnormal penile discharge or bleeding. - Related Data Home Medications Medication Instructions Recorded Confirmed Tylenol Ultra Relief 1 tab PO DAILY PRN 06/12/20 06/12/20 Previous Rx's Medication Instructions Recorded Sulfamethox-Tmp 800-160Mg [Bactrim 1 tab PO Q12HR #20 tab 06/16/20 DS 800-160 mg] valACYclovir HCL [Valtrex] 1,000 mg PO BID #15 tablet 06/16/20 Allergies Allergy/AdvReac Type Severity Reaction Status Date / Time barium iodide Allergy Anaphylaxis Verified 06/12/20 17:23 barium sulfate Allergy Anaphylaxis Verified 06/12/20 17:23 Review of Systems ROS Statement: Those systems with pertinent positive or pertinent negative responses have been documented in the HPI. ROS Other: All systems not noted in ROS Statement are negative. Past Medical History Past Medical History: No Reported History History of Any Multi-Drug Resistant Organisms: None Reported Past Surgical History: Appendectomy Past Psychological History: No Psychological Hx Reported Smoking Status: Current every day smoker Past Alcohol Use History: None Reported Past Drug Use History: None Reported General Exam Limitations: no limitations General appearance: alert, in no apparent distress Cardiovascular Exam: Present: normal rhythm, tachycardia GI/Abdominal exam: Present: soft, normal bowel sounds. Absent: distended, tenderness, guarding, rebound, rigid exam: Present: other (ulcerative lesion right penile shaft - 1 cm. Mild active drainage. multiple additional raised, non-vescicular papules bilateral scrotum, inguinal fold, proximal right thigh. Right thigh lesion has central ulceration with surrouding flutuance measuring 2.5 x 1.5 cm) Course Vital Signs 06/12/20 06/12/20 06/12/20 15:30 16:33 17:00 Temperature 98.9 F Pulse Rate 112 H 98 Respiratory 20 18 18 Rate Blood Pressure 140/73 145/97 O2 Sat by Pulse 99 98 Oximetry 06/12/20 21:04 Temperature 98.7 F Pulse Rate 77 Respiratory 20 Rate Blood Pressure 143/90 O2 Sat by Pulse 97 Oximetry Procedures - Incision & Drainage Consent Obtained: verbal consent Site: lower extremity Size (cm): 3 Anesthetic Used: lidocaine 1% Amount (mLs): 5 I&D Cleaning Method: Chloroprep Sterile Field Used?: Yes Scalpel Used: #11 Needle Aspiration Performed?: No Irrigation Performed?: No I&D Drainage Obtained: Pus, Blood Culture Obtained?: Yes Patient Tolerated Procedure: well, no complications Medical Decision Making - Medical Decision Making Upon arrival patient is placed into room 16. A thorough history and physical ex am was performed. Peripheral IV is established and laboratory studies were conducted. The patient was empirically given a dose of Unasyn and Vanco. Provide a urine sample for chlamydia and gonorrhea testing. I did perform incision and drainage of the patient's right distal thigh abscess. The proximal thigh abscess was also unroofed cultures were obtained. Did recommend hospital admission for rapidly advancing symptoms which the patient agreed to. Patient agreed to treatment plan. Discussed case with Dr. Chambers who accepted admission. Patient was then awaiting a bed on the floor - Lab Data Result diagrams: 06/15/20 07:43 06/15/20 07:43 Lab Results 06/12/20 06/12/20 06/12/20 Range/Units 17:17 17:17 18:59 WBC 11.2 H (3.8-10.6) k/uL RBC 5.53 (4.30-5.90) m/uL Hgb 16.1 (13.0-17.5) gm/dL Hct 50.3 (39.0-53.0) % MCV 90.9 (80.0-100.0) fL MCH 29.1 (25.0-35.0) pg MCHC 32.0 (31.0-37.0) g/dL RDW 13.1 (11.5-15.5) % Plt Count 335 (150-450) k/uL Neutrophils % 71 % Lymphocytes % 18 % Monocytes % 5 % Eosinophils % 3 % Basophils % 2 % Neutrophils # 7.9 H (1.3-7.7) k/uL Lymphocytes # 2.0 (1.0-4.8) k/uL Monocytes # 0.6 (0-1.0) k/uL Eosinophils # 0.3 (0-0.7) k/uL Basophils # 0.2 (0-0.2) k/uL ESR 2 (0-15) mm/hr Sodium 138 (137-145) mmol/L Potassium 4.1 (3.5-5.1) mmol/L Chloride 107 (98-107) mmol/L Carbon Dioxide 25 (22-30) mmol/L Anion Gap 6 mmol/L BUN 13 (9-20) mg/dL Creatinine 1.01 (0.66-1.25) mg/dL Est GFR (CKD-EPI)AfAm >90 (>60 ml/min/1.73 sqM) Est GFR (CKD-EPI)NonAf 86 (>60 ml/min/1.73 sqM) Glucose 85 (74-99) mg/dL Calcium 8.9 (8.4-10.2) mg/dL Total Bilirubin 1.1 (0.2-1.3) mg/dL AST 40 (17-59) U/L ALT 26 (4-49) U/L Alkaline Phosphatase 64 (38-126) U/L C-Reactive Protein 5.6 (<10.0) mg/L Total Protein 6.3 (6.3-8.2) g/dL Albumin 3.8 (3.5-5.0) g/dL Vancomycin Trough ug/mL Treponema pallidum Ab (Non-Reactive) Chlamydia Source Urine Chlamydia DNA (PCR) Negative (Neg,Equiv) HSV I&II IgM Ab (<=0.90) INDEX HSV I IgG Ab AI HSV I IgG Interpret (NEGATIVE) HSV II IgG AI HSV II IgG Interpret (NEGATIVE) HSV I DNA PCR (Not detected) HSV II DNA PCR (Not detected) HSV (PCR) Source HIV-1 Antibody (Non-Reactive) HIV Ag/Ab Interpret HIV p24 Antibody (Non-Reactive) HIV-2 Antibody (Non-Reactive) HIV P24 Antigen (Non-Reactive) N. gonorrhoeae Source Urine N.gonorrhoeae DNA Probe Negative (Neg,Equiv) 06/12/20 06/12/20 06/13/20 Range/Units 23:09 23:12 07:52 WBC 5.5 (3.8-10.6) k/uL RBC 4.98 (4.30-5.90) m/uL Hgb 14.6 (13.0-17.5) gm/dL Hct 46.5 (39.0-53.0) % MCV 93.4 (80.0-100.0) fL MCH 29.4 (25.0-35.0) pg MCHC 31.5 (31.0-37.0) g/dL RDW 13.3 (11.5-15.5) % Plt Count 297 (150-450) k/uL Neutrophils % 49 % Lymphocytes % 34 % Monocytes % 7 % Eosinophils % 7 % Basophils % 2 % Neutrophils # 2.7 (1.3-7.7) k/uL Lymphocytes # 1.8 (1.0-4.8) k/uL Monocytes # 0.4 (0-1.0) k/uL Eosinophils # 0.4 (0-0.7) k/uL Basophils # 0.1 (0-0.2) k/uL ESR (0-15) mm/hr Sodium (137-145) mmol/L Potassium (3.5-5.1) mmol/L Chloride (98-107) mmol/L Carbon Dioxide (22-30) mmol/L Anion Gap mmol/L BUN (9-20) mg/dL Creatinine (0.66-1.25) mg/dL Est GFR (CKD-EPI)AfAm (>60 ml/min/1.73 sqM) Est GFR (CKD-EPI)NonAf (>60 ml/min/1.73 sqM) Glucose (74-99) mg/dL Calcium (8.4-10.2) mg/dL Total Bilirubin (0.2-1.3) mg/dL AST (17-59) U/L ALT (4-49) U/L Alkaline Phosphatase (38-126) U/L C-Reactive Protein (<10.0) mg/L Total Protein (6.3-8.2) g/dL Albumin (3.5-5.0) g/dL Vancomycin Trough ug/mL Treponema pallidum Ab Non-Reactive (Non-Reactive) Chlamydia Source Chlamydia DNA (PCR) (Neg,Equiv) HSV I&II IgM Ab (<=0.90) INDEX HSV I IgG Ab AI HSV I IgG Interpret (NEGATIVE) HSV II IgG AI HSV II IgG Interpret (NEGATIVE) HSV I DNA PCR Not detected (Not detected) HSV II DNA PCR Not detected (Not detected) HSV (PCR) Source See Below HIV-1 Antibody (Non-Reactive) HIV Ag/Ab Interpret HIV p24 Antibody (Non-Reactive) HIV-2 Antibody (Non-Reactive) HIV P24 Antigen (Non-Reactive) N. gonorrhoeae Source N.gonorrhoeae DNA Probe (Neg,Equiv) 06/13/20 06/14/20 06/14/20 Range/Units 07:52 01:30 09:04 WBC 6.0 (3.8-10.6) k/uL RBC 5.12 (4.30-5.90) m/uL Hgb 14.8 (13.0-17.5) gm/dL Hct 48.1 (39.0-53.0) % MCV 94.0 (80.0-100.0) fL MCH 28.8 (25.0-35.0) pg MCHC 30.7 L (31.0-37.0) g/dL RDW 13.5 (11.5-15.5) % Plt Count 330 (150-450) k/uL Neutrophils % 53 % Lymphocytes % 30 % Monocytes % 6 % Eosinophils % 7 % Basophils % 2 % Neutrophils # 3.2 (1.3-7.7) k/uL Lymphocytes # 1.8 (1.0-4.8) k/uL Monocytes # 0.3 (0-1.0) k/uL Eosinophils # 0.5 (0-0.7) k/uL Basophils # 0.1 (0-0.2) k/uL ESR (0-15) mm/hr Sodium 137 (137-145) mmol/L Potassium 4.2 (3.5-5.1) mmol/L Chloride 107 (98-107) mmol/L Carbon Dioxide 27 (22-30) mmol/L Anion Gap 3 mmol/L BUN 13 (9-20) mg/dL Creatinine 0.91 (0.66-1.25) mg/dL Est GFR (CKD-EPI)AfAm >90 (>60 ml/min/1.73 sqM) Est GFR (CKD-EPI)NonAf >90 (>60 ml/min/1.73 sqM) Glucose 93 (74-99) mg/dL Calcium 7.9 L (8.4-10.2) mg/dL Total Bilirubin (0.2-1.3) mg/dL AST (17-59) U/L ALT (4-49) U/L Alkaline Phosphatase (38-126) U/L C-Reactive Protein (<10.0) mg/L Total Protein (6.3-8.2) g/dL Albumin (3.5-5.0) g/dL Vancomycin Trough 13.1 ug/mL Treponema pallidum Ab (Non-Reactive) Chlamydia Source Chlamydia DNA (PCR) (Neg,Equiv) HSV I&II IgM Ab (<=0.90) INDEX HSV I IgG Ab AI HSV I IgG Interpret (NEGATIVE) HSV II IgG AI HSV II IgG Interpret (NEGATIVE) HSV I DNA PCR (Not detected) HSV II DNA PCR (Not detected) HSV (PCR) Source HIV-1 Antibody (Non-Reactive) HIV Ag/Ab Interpret HIV p24 Antibody (Non-Reactive) HIV-2 Antibody (Non-Reactive) HIV P24 Antigen (Non-Reactive) N. gonorrhoeae Source N.gonorrhoeae DNA Probe (Neg,Equiv) 06/14/20 06/14/20 06/14/20 Range/Units 09:04 09:04 09:04 WBC (3.8-10.6) k/uL RBC (4.30-5.90) m/uL Hgb (13.0-17.5) gm/dL Hct (39.0-53.0) % MCV (80.0-100.0) fL MCH (25.0-35.0) pg MCHC (31.0-37.0) g/dL RDW (11.5-15.5) % Plt Count (150-450) k/uL Neutrophils % % Lymphocytes % % Monocytes % % Eosinophils % % Basophils % % Neutrophils # (1.3-7.7) k/uL Lymphocytes # (1.0-4.8) k/uL Monocytes # (0-1.0) k/uL Eosinophils # (0-0.7) k/uL Basophils # (0-0.2) k/uL ESR (0-15) mm/hr Sodium 137 (137-145) mmol/L Potassium 4.5 (3.5-5.1) mmol/L Chloride 106 (98-107) mmol/L Carbon Dioxide 28 (22-30) mmol/L Anion Gap 3 mmol/L BUN 15 (9-20) mg/dL Creatinine 0.87 (0.66-1.25) mg/dL Est GFR (CKD-EPI)AfAm >90 (>60 ml/min/1.73 sqM) Est GFR (CKD-EPI)NonAf >90 (>60 ml/min/1.73 sqM) Glucose 84 (74-99) mg/dL Calcium 8.3 L (8.4-10.2) mg/dL Total Bilirubin (0.2-1.3) mg/dL AST (17-59) U/L ALT (4-49) U/L Alkaline Phosphatase (38-126) U/L C-Reactive Protein (<10.0) mg/L Total Protein (6.3-8.2) g/dL Albumin (3.5-5.0) g/dL Vancomycin Trough ug/mL Treponema pallidum Ab (Non-Reactive) Chlamydia Source Chlamydia DNA (PCR) (Neg,Equiv) HSV I&II IgM Ab 0.45 (<=0.90) INDEX HSV I IgG Ab AI HSV I IgG Interpret (NEGATIVE) HSV II IgG AI HSV II IgG Interpret (NEGATIVE) HSV I DNA PCR (Not detected) HSV II DNA PCR (Not detected) HSV (PCR) Source HIV-1 Antibody Non-Reactive (Non-Reactive) HIV Ag/Ab Interpret HIV p24 Antibody Non-Reactive (Non-Reactive) HIV-2 Antibody Non-Reactive (Non-Reactive) HIV P24 Antigen Non-Reactive (Non-Reactive) N. gonorrhoeae Source N.gonorrhoeae DNA Probe (Neg,Equiv) 06/14/20 06/15/20 06/15/20 Range/Units 09:04 07:43 07:43 WBC 8.2 (3.8-10.6) k/uL RBC 5.46 (4.30-5.90) m/uL Hgb 16.0 (13.0-17.5) gm/dL Hct 49.7 (39.0-53.0) % MCV 91.0 (80.0-100.0) fL MCH 29.3 (25.0-35.0) pg MCHC 32.2 (31.0-37.0) g/dL RDW 13.1 (11.5-15.5) % Plt Count 364 (150-450) k/uL Neutrophils % 66 % Lymphocytes % 21 % Monocytes % 4 % Eosinophils % 6 % Basophils % 2 % Neutrophils # 5.4 (1.3-7.7) k/uL Lymphocytes # 1.7 (1.0-4.8) k/uL Monocytes # 0.4 (0-1.0) k/uL Eosinophils # 0.5 (0-0.7) k/uL Basophils # 0.1 (0-0.2) k/uL ESR (0-15) mm/hr Sodium 137 (137-145) mmol/L Potassium 4.4 (3.5-5.1) mmol/L Chloride 106 (98-107) mmol/L Carbon Dioxide 27 (22-30) mmol/L Anion Gap 4 mmol/L BUN 13 (9-20) mg/dL Creatinine 0.89 (0.66-1.25) mg/dL Est GFR (CKD-EPI)AfAm >90 (>60 ml/min/1.73 sqM) Est GFR (CKD-EPI)NonAf >90 (>60 ml/min/1.73 sqM) Glucose 117 H (74-99) mg/dL Calcium 8.2 L (8.4-10.2) mg/dL Total Bilirubin (0.2-1.3) mg/dL AST (17-59) U/L ALT (4-49) U/L Alkaline Phosphatase (38-126) U/L C-Reactive Protein (<10.0) mg/L Total Protein (6.3-8.2) g/dL Albumin (3.5-5.0) g/dL Vancomycin Trough ug/mL Treponema pallidum Ab (Non-Reactive) Chlamydia Source Chlamydia DNA (PCR) (Neg,Equiv) HSV I&II IgM Ab (<=0.90) INDEX HSV I IgG Ab <0.2 AI HSV I IgG Interpret NEGATIVE (NEGATIVE) HSV II IgG >8.0 AI HSV II IgG Interpret POSITIVE A (NEGATIVE) HSV I DNA PCR (Not detected) HSV II DNA PCR (Not detected) HSV (PCR) Source HIV-1 Antibody (Non-Reactive) HIV Ag/Ab Interpret HIV p24 Antibody (Non-Reactive) HIV-2 Antibody (Non-Reactive) HIV P24 Antigen (Non-Reactive) N. gonorrhoeae Source N.gonorrhoeae DNA Probe (Neg,Equiv) Disposition Clinical Impression: Abscess, Cellulitis Disposition: ADMITTED IP TO THIS HOSP Condition: Stable Is patient prescribed a controlled substance at d/c from ED?: No Decision to Admit Reason: Admit from EC Decision Date: 06/12/20 Decision Time: 19:05
[2020-06-12] MEDS ORDERED: ACETAMINOPHEN TAB 500 MG TAB PO PRN (21:52)
[2020-06-12] MEDS ORDERED: TEMAZEPAM 15 MG CAP PO PRN (21:52)
[2020-06-12] MEDS ORDERED: ALPRAZolam 0.25 MG TAB PO PRN (21:52)
--- NOTE | 2020-06-12 22:20 | XR ---
EXAMINATION TYPE: XR chest 1V portable DATE OF EXAM: 06/12/2020 COMPARISON: 11/20/2012 HISTORY: Chest pain TECHNIQUE: FINDINGS: Heart and mediastinum are normal. Lungs are clear. Diaphragm is normal. Bony thorax appears normal. IMPRESSION: Normal chest. No evidence of heart failure. No change.
[2020-06-12] MEDS: AZITHROMYCIN 500 MG in SODIUM CHLORIDE 0.9% 250 ML IVPB SCH (22:23)
[2020-06-12] MEDS: NICOTINE 14MG/24HR PATCH TRANSDERM SCH (22:24)
[2020-06-12] MEDS: HYDROcodone/APAP 5-325MG 1 EACH TAB PO PRN (22:26)
--- NOTE | 2020-06-12 23:38 | HP ---
HISTORY AND PHYSICAL DATE OF SERVICE: 06/12/2020 CHIEF COMPLAINTS: Multiple skin lesions on the thigh as well as the genital area. HISTORY OF PRESENT ILLNESS: This 49-year-old gentleman with a past medical history of DJD, history of appendectomy, being followed by Dr. Phuc Brunner previously, was complaining of multiple skin lesions. Patient apparently went to [facility] and nothing was done, according to him, and the patient came to [facility]. The patient has significant skin lesions that started in the genital area, especially near the penis and scrotal area. Then subsequently the patient had significant lesions on the right thigh also. The patient came to the [facility]. The ER physician performed incision and drainage of the thigh lesion and the patient was admitted for further evaluation and treatment. There is no history of any fever, rigor or chills. No history of headache, loss of consciousness, seizures at this time. Apparently the patient's has been in the hospital multiple times for apparent STD per the patient's suspicions, but his never disclosed the details to the patient, but the apparently asked the patient to take Zithromax, which the patient produced. Once again, there is no history of any fever, rigor or chills. No history of unprotected sexual exposure to the patient at this time. PAST MEDICAL HISTORY: History of appendectomy, history of DJD. HOME MEDICATIONS: Tylenol and Bactrim DS one p.o. b.i.d. ALLERGIES: BARIUM. FAMILY HISTORY: No history of heart disease or strokes in the family. SOCIAL HISTORY: History of smoking. No history of alcohol intake. REVIEW OF SYSTEMS: ENT: No diminished hearing. No diminished vision. CARDIOVASCULAR SYSTEM: No angina, palpitations. RESPIRATORY SYSTEM: As mentioned earlier. GI: No nausea, vomiting. : As mentioned earlier. NERVOUS SYSTEM: No numbness, weakness. ALLERGY/IMMUNOLOGY: No asthma, hayfever. MUSCULOSKELETAL: As mentioned earlier. HEMATOLOGY/ONCOLOGY: No history of anemia. ENDOCRINE: No history of diabetes, hypothyroidism. CONSTITUTIONAL: As mentioned earlier. DERMATOLOGY: As mentioned earlier. RHEUMATOLOGY: Negative. PSYCHIATRY: As mentioned earlier. PHYSICAL EXAMINATION: Patient alert and oriented x3. Pulse is 112, blood pressure 140/73, respiration 20, temperature 98.9, pulse ox 99% on room air. HEENT: Conjunctivae normal. Oral mucosa moist. NECK: No jugular venous distention. No carotid bruit. No lymph node enlargement. CARDIOVASCULAR SYSTEM: S1, S2 muffled. No S3. No S4. RESPIRATORY SYSTEM: Breath sounds diminished at the bases. No rhonchi. No crackles. ABDOMEN: Soft, non-tender. No mass palpable. LEGS: Significant infection and cellulitis on the right inner thigh. The lower one is actually more inflamed and underwent incision and drainage by ER physician. NERVOUS SYSTEM: Higher functions as mentioned earlier. Moves all 4 limbs. No focal motor or sensory deficit. LYMPHATICS: No lymph node palpable in neck, axillae or groin. SKIN: As mentioned earlier. JOINTS: No active deforming arthropathy. Examination of external genitalia showed multiple ulcerations present which are rather draining; also from the penis area as well. LABS: WBC 11.2, hemoglobin 16.1. CMP within normal limits. ASSESSMENT: 1. Multiple skin ulcerations in the genital area as well as right thigh. 2. Possible methicillin-resistant Staphylococcus aeruginosa. 3. Possible STD. 4. Increased white count. 5. History of degenerative joint disease. 6. History of appendectomy. 7. History of continued ongoing nicotine dependence. 8. FULL CODE. RECOMMENDATIONS AND DISCUSSION: In this 49-year-old gentleman who presented with multiple complex medical issues, we will monitor the patient closely, continue the current medications, continue symptomatic treatment. Will initiate broad-spectrum IV antibiotics. Follow the cultures. Otherwise, I would also recommend Zithromax and I would also recommend infectious disease evaluation. Resume the home medications. Symptomatic treatment will be continued. Prognosis guarded because of multiple complex medical issues. Further recommendations to follow. A copy of this dictation is being forwarded to Dr. Phuc Brunner, who is the primary physician. Prognosis guarded. MMODL / IJN: [id number] /
[2020-06-13] MEDS: AMPICILLIN-SULBACTAM 3 GM in SODIUM CHLORIDE 0.9% 100 ML IVPB SCH ×4 (00:08→18:08)
[2020-06-13] MEDS: HYDROmorphone 0.5 MG/0.5 ML SYRINGE IVP PRN ×2 (00:12→20:43)
[2020-06-13] MEDS: VANCOMYCIN 1,250 MG in SODIUM CHLORIDE 0.9% 250 ML IVPB SCH ×3 (02:24→18:09)
[2020-06-13 08:13] LABS: Basophils # (A) 0.1 k/uL (0-0.2); Basophils % (A) 2 %; Eosinophils # (A) 0.4 k/uL (0-0.7); Eosinophils % (A) 7 %; HCT 46.5 % (39.0-53.0); HGB 14.6 gm/dL (13.0-17.5); Lymphocytes # (A) 1.8 k/uL (1.0-4.8); Lymphocytes % (A) 34 %; MCH 29.4 pg (25.0-35.0); MCHC 31.5 g/dL (31.0-37.0); MCV 93.4 fL (80.0-100.0); Mean Platelet Volume 6.4; Monocytes # (A) 0.4 k/uL (0-1.0); Monocytes % (A) 7 %; Neutrophils # (A) 2.7 k/uL (1.3-7.7); Neutrophils % (A) 49 %; Platelet Count 297 k/uL (150-450); RBC 4.98 m/uL (4.30-5.90); RDW 13.3 % (11.5-15.5); WBC 5.5 k/uL (3.8-10.6)
[2020-06-13 08:37] LABS: African American GFR (CKD) >90 (>60 ml/min/1.73 sqM); Anion Gap 3 mmol/L; Blood Urea Nitrogen 13 mg/dL (9-20); Calcium 7.9 mg/dL (8.4-10.2); Carbon Dioxide 27 mmol/L (22-30); Chloride 107 mmol/L (98-107); Glucose 93 mg/dL (74-99); Non-African American GFR(CKD) >90 (>60 ml/min/1.73 sqM); Potassium 4.2 mmol/L (3.5-5.1); Sodium 137 mmol/L (137-145)
[2020-06-13] MEDS: NICOTINE 14MG/24HR PATCH TRANSDERM SCH (09:05)
[2020-06-13] MEDS: PANTOPRAZOLE 40 MG TABLET PO SCH (09:05)
[2020-06-13] MEDS: HEPARIN SODIUM,PORCINE 5,000 UNIT/ML 1 ML VIAL SQ SCH ×2 (09:05→20:37)
--- NOTE | 2020-06-13 15:46 | PN ---
PROGRESS NOTE DATE OF SERVICE: 06/13/2020 This 49-year-old gentleman admitted with multiple ulcerated lesions in the hip and genitalia area is being closely monitored at this time. The STD is also being suspected. Treponema pallidum antibody test has been reported as negative. Final cultures are pending. The patient is on empiric broad-spectrum IV antibiotics. PAST MEDICAL HISTORY: Reviewed. REVIEW OF SYSTEMS: CARDIOVASCULAR SYSTEM: No angina. RESPIRATORY: As mentioned earlier. GI: No nausea. : As mentioned earlier. CURRENT MEDICATIONS: Reviewed and include: 1. Tylenol. 2. [place]. 3. Xanax. 4. Unasyn. 5. Zithromax. 6. Dilaudid. 7. Habitrol. 8. Restoril. 9. Valtrex. 10.Vancomycin. PHYSICAL EXAM: Patient alert and oriented x3. Pulse 71, blood pressure 132/77, respiration rate 19, temperature 96.3, pulse ox 100% on room air. HEENT: Conjunctivae normal. Oral mucosa moist. NECK: No jugular venous distention. No lymph node enlargement. CARDIOVASCULAR: S1, S2, muffled. No S3, no S4, RESPIRATORY: Diminished breath sounds at the bases. Bilateral scattered rhonchi and crackles. ABDOMEN: Soft, nontender. LEGS: Significant ulcerations in the right inner thigh present and also multiple ulcerations on the penis and scrotum also present. NERVOUS SYSTEM: Higher functions mentioned earlier. Moves all four limbs. No focal motor or sensory deficits. LABS: WBC 5.2, hemoglobin 14.6. ASSESSMENT: 1. Multiple skin ulcerations in the genital area as well as right thigh, rule out sexually transmitted disease. 2. Possible MRSA. 3. Increased WBC. 4. History of degenerative joint disease. 5. History of appendectomy. 6. History of continued ongoing nicotine dependence. 7. FULL CODE. RECOMMENDATIONS AND DISCUSSION: I recommend to continue current management and symptomatic treatment. The patient still has some pain. Continue the broad-spectrum IV antibiotics. Add Valtrex to the current regimen. Viral cultures are pending at this time including the aerobic cultures also. Prognosis guarded. Further recommendations to follow. MMODL / IJN: [id number] /
[2020-06-13] MEDS: HYDROcodone/APAP 5-325MG 1 EACH TAB PO PRN (18:09)
[2020-06-13] MEDS: valACYclovir HCL 1,000 MG TABLET PO SCH (20:38)
[2020-06-13] MEDS: AZITHROMYCIN 500 MG in SODIUM CHLORIDE 0.9% 250 ML IVPB SCH (21:20)
--- NOTE | 2020-06-13 22:20 | P.CONS ---
History of Present Illness - Reason for Consult Consult date: 06/13/20 Right thigh and genital lesion Requesting physician: Demetria Chambers - Chief Complaint Right thigh genital lesions x few days - History of Present Illness Patient is a 49-year-old male presenting to the ER at [facility] yesterday for evaluation of painful lesion on his right thigh, patient mentioned he started as a small pimple day before yesterday for the patient was seen at [facility] patient was started on Bactrim DS which the patient took for about a day he notes the to be getting more swollen and red and painful, patient described the pain to be throbbing intensity of almost 6-7 out of 10 and no radiation patient also noticed to have ulceration on his genital area and some lesion on his scrotum patient mentioned that he was recently sexually active with his ex- and apparently before his symptoms started she was seen in the ER or some sort of genital lesion however the patient is not sure why she has exactly, with the symptoms the patient was evaluated by the ER physician on arrival to the ER the patient was afebrile he did have mildly elevated white count of 11.2, syphilis test came back negative patient did have cultures obtained from his PICC line as well as the patient has been treated with multiple antibiotics including Unasyn vancomycin and Zithromax infectious disease was consulted for further management of antibiotic therapy Review of Systems Positive point has been mentioned in the HPI rest of the systems are negative Past Medical History Past Medical History: No Reported History History of Any Multi-Drug Resistant Organisms: None Reported Past Surgical History: Appendectomy Past Anesthesia/Blood Transfusion Reactions: No Reported Reaction Past Psychological History: No Psychological Hx Reported Smoking Status: Current every day smoker Past Alcohol Use History: None Reported Past Drug Use History: None Reported Medications and Allergies Home Medications Medication Instructions Recorded Confirmed Type Sulfamethoxazole/Trimethoprim 1 tab PO BID 06/12/20 06/12/20 History [Sulfamethoxazole-Tmp Ds Tablet] Tylenol Ultra Relief 1 tab PO DAILY PRN 06/12/20 06/12/20 History Allergies Allergy/AdvReac Type Severity Reaction Status Date / Time barium iodide Allergy Anaphylaxis Verified 06/12/20 17:23 barium sulfate Allergy Anaphylaxis Verified 06/12/20 17:23 Physical Exam Vitals: Vital Signs Temp Pulse Pulse Resp BP BP Pulse Ox 06/13/20 08:44 71 18 06/13/20 08:07 96.3 F L 71 133/76 100 06/13/20 03:00 97.9 F 72 18 153/83 98 06/12/20 21:16 96.8 F L 86 18 138/92 97 06/12/20 21:04 98.7 F 77 20 143/90 97 06/12/20 17:00 98 18 145/97 98 06/12/20 16:33 18 06/12/20 15:30 98.9 F 112 H 20 140/73 99 Intake and Output 06/12/20 06/13/20 06/13/20 22:59 06:59 14:59 Other: Voiding Method Toilet Toilet Toilet # Voids 1 1 1 Weight 88.451 kg GENERAL DESCRIPTION: Middle-aged male lying in bed, no distress. No tachypnea or accessory muscle of respiration use. HEENT: Shows Pallor , no scleral icterus. Oral mucous membrane is dry. No pharyngeal erythema or thrush NECK: Trachea central, no thyromegaly. LUNGS: Unlabored breathing. Clear to auscultation anteriorly. No wheeze or crackle. HEART: S1, S2, regular rate and rhythm. No loud murmur ABDOMEN: Soft, no tenderness , guarding or rigidity, no organomegaly EXTREMITIES: No edema of feet. SKIN: Right thigh and didn't have any of folliculitis with some surrounding cellulitis patient did have a follicular lesion to the scrotal area and superficial ulceration to the penile shaft no lesion on the glans penis was noticed NEUROLOGICAL: The patient is awake, alert, oriented x3, mood and affect normal. Results CBC & Chem 7: 06/13/20 07:52 06/13/20 07:52 Labs: Abnormal Lab Results - Last 24 Hours (Table) 06/12/20 06/13/20 Range/Units 17:17 07:52 WBC 11.2 H (3.8-10.6) k/uL Neutrophils # 7.9 H (1.3-7.7) k/uL Calcium 7.9 L (8.4-10.2) mg/dL Microbiology - Last 24 Hours (Table) 06/12/20 23:09 Gram Stain - Preliminary Thigh - Right Wound Culture - Preliminary 06/12/20 23:09 Gram Stain - Preliminary Other - Other Wound Culture - Preliminary Assessment and Plan Assessment: 1- patient with lesions to the right thigh and scrotal area have features of folliculitis , and likely from gram-positive skin rosana such as strep and Staphylococcus aureus 2-genital ulcer on the penile shaft not very typical for herpetic lesion though not entirely excluded as the patient mentioned genital lesion reported by his ex- with whom the patient was sexually active recently (1) Male genital ulcer Current Visit: Yes Status: Acute Code(s): XKS9929 - SNOMED Code(s): 10711518 (2) Cellulitis Current Visit: Yes Status: Acute Code(s): L03.90 - CELLULITIS, UNSPECIFIED SNOMED Code(s): 563414402 Plan: 1- we will wait for the cultures to finalize especially the HSV DNA by PCR on his genital lesion 2-we will obtain HIV test HSV 1 and 2 antibodies 3-Vancomycin pharmacy to dose target trough of 15 while watching kidney function and Vanco trough closely We will follow on clinical condition and cultures to further adjust medication if needed Thank you for this consultation will follow this patient with you Time with Patient: Greater than 30
[2020-06-14] MEDS: HYDROcodone/APAP 5-325MG 1 EACH TAB PO PRN ×3 (00:16→15:31)
[2020-06-14] MEDS ORDERED: VANCOMYCIN TROUGH DUE 1 EACH MISC MISCELLANE ONE (01:00)
[2020-06-14] MEDS: HYDROmorphone 0.5 MG/0.5 ML SYRINGE IVP PRN ×2 (02:08→09:17)
[2020-06-14] MEDS: VANCOMYCIN 1,250 MG in SODIUM CHLORIDE 0.9% 250 ML IVPB SCH ×3 (02:08→17:32)
[2020-06-14] MEDS: HEPARIN SODIUM,PORCINE 5,000 UNIT/ML 1 ML VIAL SQ SCH ×2 (07:59→20:42)
[2020-06-14] MEDS: valACYclovir HCL 1,000 MG TABLET PO SCH ×2 (08:08→20:43)
[2020-06-14] MEDS: PANTOPRAZOLE 40 MG TABLET PO SCH (08:08)
[2020-06-14] MEDS: NICOTINE 14MG/24HR PATCH TRANSDERM SCH (08:09)
[2020-06-14 09:29] LABS: Basophils # (A) 0.1 k/uL (0-0.2); Basophils % (A) 2 %; Eosinophils # (A) 0.5 k/uL (0-0.7); Eosinophils % (A) 7 %; HCT 48.1 % (39.0-53.0); HGB 14.8 gm/dL (13.0-17.5); Lymphocytes # (A) 1.8 k/uL (1.0-4.8); Lymphocytes % (A) 30 %; MCH 28.8 pg (25.0-35.0); MCHC 30.7 g/dL (31.0-37.0); Mean Platelet Volume 6.6; Monocytes # (A) 0.3 k/uL (0-1.0); Monocytes % (A) 6 %; Neutrophils # (A) 3.2 k/uL (1.3-7.7); Neutrophils % (A) 53 %; Platelet Count 330 k/uL (150-450); RBC 5.12 m/uL (4.30-5.90); RDW 13.5 % (11.5-15.5)
[2020-06-14 09:56] LABS: African American GFR (CKD) >90 (>60 ml/min/1.73 sqM); Anion Gap 3 mmol/L; Blood Urea Nitrogen 15 mg/dL (9-20); Calcium 8.3 mg/dL (8.4-10.2); Carbon Dioxide 28 mmol/L (22-30); Chloride 106 mmol/L (98-107); Glucose 84 mg/dL (74-99); Non-African American GFR(CKD) >90 (>60 ml/min/1.73 sqM); Potassium 4.5 mmol/L (3.5-5.1); Sodium 137 mmol/L (137-145)
--- NOTE | 2020-06-14 14:53 | PN ---
PROGRESS NOTE DATE OF SERVICE: 06/14/2020 This 49-year-old gentleman admitted with genitalia ulcerations and lesions is being closely monitored at this time. The patient is being treated with empiric antibiotics at this time. Cultures are negative so far. Dr. Reina is following the patient closely. The Treponema pallidum antibody is negative. PHYSICAL EXAMINATION: Alert and oriented x3. Pulse 75, blood pressure 130/82, respirations 16, temperature 98 degrees, pulse ox 97% on room air. HEENT: Conjunctivae normal. Oral mucosa moist. NECK: No jugular venous distention. No lymph node enlargement. CARDIOVASCULAR: S1, S2, muffled. No S3, no S4, RESPIRATORY: Diminished breath sounds at the bases. No rhonchi and no crackles. ABDOMEN: Soft, nontender. LEGS: Right thigh some indurated in the lower thigh, some erythema and multiple ulcerations present. LABS: WBC 6. Other labs are noted. ASSESSMENT: 1. Multiple skin ulcerations of the genital area as well as right thigh, rule out sexually transmitted disease. 2. Possible MRSA. 3. Increased WBC. 4. History of degenerative joint disease. 5. History of appendectomy. 6. History of continued ongoing nicotine dependence. 7. FULL CODE. RECOMMENDATIONS AND DISCUSSION: Continue current medications, continue with antibiotics we will await the antiviral and antibacterial testing. Otherwise, prognosis guarded because of multiple complex medical issues. Further recommendations to follow. MMODL / IJN: [id number] /
[2020-06-14] MEDS: AZITHROMYCIN 500 MG TAB PO SCH (20:43)
[2020-06-15] MEDS: VANCOMYCIN 1,250 MG in SODIUM CHLORIDE 0.9% 250 ML IVPB SCH ×3 (01:34→17:34)
--- NOTE | 2020-06-15 05:08 | PN ---
PROGRESS NOTE DATE OF SERVICE: 06/14/2020 REASON FOR FOLLOWUP: 1. Right thigh and scrotal folliculitis/cellulitis. 2. Genital ulcer. INTERVAL HISTORY: The patient is currently afebrile, has been complaining of pain to his right medial thigh area which has slightly decreased in size. Denies any chest pain or cough. No abdominal pain. No diarrhea. No new lesions. PHYSICAL EXAMINATION: Blood pressure is 127/87 with the pulse of 71, temperature 98.8. He is 96% on room air. General description is a middle-aged male lying in bed in no distress. RESPIRATORY SYSTEM: Unlabored breathing, clear to auscultation anteriorly. HEART: S1, S2. Regular rate and rhythm. ABDOMEN: Soft, no tenderness. Right mid thigh did have an area of folliculitis as well as cellulitis, redness slightly decreased. Scrotal area did have multiple lesions, but no worsening. Minimal drainage and no worsening of the penile shaft ulcer. LABS: Hemoglobin is 14.8, white count 6.0, BUN of 15, creatinine 0.87. Wound cultures showing MRSA. DIAGNOSTIC IMPRESSION AND PLAN: 1. Patient with right medial thigh and scrotal area folliculitis and superficial ulceration with culture showing MRSA. Patient is covered with vancomycin to continue for now. 2. Patient with a genital ulcer. The HSV DNA per PCR is currently pending. Patient on antibiotic and Valtrex. Rest of the workup is currently pending. MMODL / IJN: [id number] /
[2020-06-15 08:25] LABS: Basophils # (A) 0.1 k/uL (0-0.2); Basophils % (A) 2 %; Eosinophils # (A) 0.5 k/uL (0-0.7); Eosinophils % (A) 6 %; HCT 49.7 % (39.0-53.0); Lymphocytes # (A) 1.7 k/uL (1.0-4.8); Lymphocytes % (A) 21 %; MCH 29.3 pg (25.0-35.0); MCHC 32.2 g/dL (31.0-37.0); Mean Platelet Volume 6.3; Monocytes # (A) 0.4 k/uL (0-1.0); Monocytes % (A) 4 %; Neutrophils # (A) 5.4 k/uL (1.3-7.7); Neutrophils % (A) 66 %; Platelet Count 364 k/uL (150-450); RBC 5.46 m/uL (4.30-5.90); RDW 13.1 % (11.5-15.5); WBC 8.2 k/uL (3.8-10.6)
[2020-06-15 08:29] LABS: African American GFR (CKD) >90 (>60 ml/min/1.73 sqM); Anion Gap 4 mmol/L; Blood Urea Nitrogen 13 mg/dL (9-20); Calcium 8.2 mg/dL (8.4-10.2); Carbon Dioxide 27 mmol/L (22-30); Chloride 106 mmol/L (98-107); Glucose 117 mg/dL (74-99); Non-African American GFR(CKD) >90 (>60 ml/min/1.73 sqM); Potassium 4.4 mmol/L (3.5-5.1); Sodium 137 mmol/L (137-145)
[2020-06-15] MEDS: valACYclovir HCL 1,000 MG TABLET PO SCH ×2 (08:34→21:13)
[2020-06-15] MEDS: HEPARIN SODIUM,PORCINE 5,000 UNIT/ML 1 ML VIAL SQ SCH ×2 (08:34→21:51)
[2020-06-15] MEDS: NICOTINE 14MG/24HR PATCH TRANSDERM SCH (08:34)
[2020-06-15] MEDS: PANTOPRAZOLE 40 MG TABLET PO SCH (08:34)
[2020-06-15] MEDS: HYDROcodone/APAP 5-325MG 1 EACH TAB PO PRN ×2 (09:33→21:13)
[2020-06-15] MEDS: HYDROmorphone 0.5 MG/0.5 ML SYRINGE IVP PRN ×2 (12:30→17:33)
[2020-06-15 13:00] LABS: HIV 2 AB Non-Reactive (Non-Reactive); HIV AB P24 Non-Reactive (Non-Reactive); HIV P24 AG Non-Reactive (Non-Reactive); HSV I IgG Interp NEGATIVE (NEGATIVE); HSV II IgG Interp POSITIVE (NEGATIVE)
--- NOTE | 2020-06-15 13:01 | P.GSCN ---
History of Present Illness Consult date: 06/15/20 History of present illness: CHIEF COMPLAINT: Multiple skin lesions on the right thigh and scrotal area HISTORY OF PRESENT ILLNESS: This is a 49-year-old male with known history of degenerative joint disease and appendectomy. He presents to the emergency room with complaints of skin lesions on the right thigh and testicle and penile area. Patient reports that symptoms of been there for about for about 4 days. He states they came on suddenly. He had a pimple-like lesion on the right thigh. He also had a very hot warm sensation in the testicle area and found a further lesion on the testicle and penis area. All areas have drained. Per patient the drainage initially was puslike and has now become a clear yellow. Cultures were obtained. Wound culture has grown presumptive MRSA. Patient is on vancomycin and followed by infectious disease. I and D of the right thigh abscess completed in the ER. WBC has gone down from 11.2 to 6. Patient denies any fev er, chills or sweats. Denies any nausea or vomiting. He denies any urinary symptoms. He is being evaluated for STDs by infectious disease. PAST MEDICAL HISTORY: See list. PAST SURGICAL HISTORY: See list. MEDICATIONS: See list. ALLERGIES: See list. SOCIAL HISTORY: No illicit drug use. REVIEW OF SYSTEMS: CONSTITUTIONAL: Denies fever or chills. HEENT: Denies blurred vision, vision changes, or eye pain. Denies hemoptysis CARDIOVASCULAR: Denies chest pain or pressure. RESPIRATORY: No shortness of breath. GASTROINTESTINAL: See HPI for pertinent findings HEMATOLOGIC: Denies bleeding disorders. GENITOURINARY: Denies any blood in urine or increased urinary frequency. SKIN: Denies pruitis. Denies rash. PHYSICAL EXAM: VITAL SIGNS: Reviewed GENERAL: Well-developed in no acute distress. HEENT: No sclera icterus. Extraocular movements grossly intact. Moist buccal mucosa. Head is atraumatic, normocephalic. No nasal drainage. ABDOMEN: Soft. Nontender nondistended NEUROLOGIC: Alert and oriented. Cranial nerves II through XII grossly intact. SKIN: Right thigh 2 cm in size small skin lesion draining. Mild erythema. Higher up on the thigh 5 mm skin lesion. Testicular area to small skin lesions that are draining serous-like fluid. And penile shaft ulcer noted LABORATORY DATA: WBC 8.2 IMAGING: ASSESSMENT: 1. Right medial thigh, scrotal area and penile shaft skin lesions with culture growing MRSA PLAN: -Agree with antibiotics per ID -Keep area clean and dry -No surgical intervention planned Thank you for this consultation Physician [employer] Eng[employer] note has been reviewed by physician. Signing provider agrees with the documented findings, assessment, and plan of care. Past Medical History Past Medical History: No Reported History History of Any Multi-Drug Resistant Organisms: None Reported Past Surgical History: Appendectomy Past Anesthesia/Blood Transfusion Reactions: No Reported Reaction Past Psychological History: No Psychological Hx Reported Smoking Status: Current every day smoker Past Alcohol Use History: None Reported Past Drug Use History: None Reported Medications and Allergies Home Medications Medication Instructions Recorded Confirmed Type Sulfamethoxazole/Trimethoprim 1 tab PO BID 06/12/20 06/12/20 History [Sulfamethoxazole-Tmp Ds Tablet] Tylenol Ultra Relief 1 tab PO DAILY PRN 06/12/20 06/12/20 History Allergies Allergy/AdvReac Type Severity Reaction Status Date / Time barium iodide Allergy Anaphylaxis Verified 06/12/20 17:23 barium sulfate Allergy Anaphylaxis Verified 06/12/20 17:23 Surgical - Exam Vital Signs Temp Pulse Resp BP Pulse Ox 98.9 F 112 H 20 140/73 99 06/12/20 15:30 06/12/20 15:30 06/12/20 15:30 06/12/20 15:30 06/12/20 15:30 Results - Labs 06/15/20 07:43 06/15/20 07:43 Abnormal Lab Results - Last 24 Hours (Table) 06/15/20 Range/Units 07:43 Glucose 117 H (74-99) mg/dL Calcium 8.2 L (8.4-10.2) mg/dL Microbiology - Last 24 Hours (Table) 06/15/20 07:45 Wound Culture - Preliminary Thigh - Right 06/12/20 23:09 Gram Stain - Preliminary Thigh - Right Wound Culture - Preliminary Presumptive MRSA 06/12/20 23:09 Gram Stain - Preliminary Other - Other Wound Culture - Preliminary Presumptive MRSA Diabetes panel 06/15/20 Range/Units 07:43 Sodium 137 (137-145) mmol/L Potassium 4.4 (3.5-5.1) mmol/L Chloride 106 (98-107) mmol/L Carbon Dioxide 27 (22-30) mmol/L BUN 13 (9-20) mg/dL Creatinine 0.89 (0.66-1.25) mg/dL Glucose 117 H (74-99) mg/dL Calcium 8.2 L (8.4-10.2) mg/dL Calcium panel 06/15/20 Range/Units 07:43 Calcium 8.2 L (8.4-10.2) mg/dL Pituitary panel 06/15/20 Range/Units 07:43 Sodium 137 (137-145) mmol/L Potassium 4.4 (3.5-5.1) mmol/L Chloride 106 (98-107) mmol/L Carbon Dioxide 27 (22-30) mmol/L BUN 13 (9-20) mg/dL Creatinine 0.89 (0.66-1.25) mg/dL Glucose 117 H (74-99) mg/dL Calcium 8.2 L (8.4-10.2) mg/dL Adrenal panel 06/15/20 Range/Units 07:43 Sodium 137 (137-145) mmol/L Potassium 4.4 (3.5-5.1) mmol/L Chloride 106 (98-107) mmol/L Carbon Dioxide 27 (22-30) mmol/L BUN 13 (9-20) mg/dL Creatinine 0.89 (0.66-1.25) mg/dL Glucose 117 H (74-99) mg/dL Calcium 8.2 L (8.4-10.2) mg/dL
[2020-06-15 15:44] LABS: C. trachomatis,PCR Negative (Neg,Equiv); Chlamydia trachomatis Source Urine; N. gonorrhoeae,PCR Negative (Neg,Equiv); Neisseria Source Urine
[2020-06-15] MEDS ORDERED: VANCOMYCIN TROUGH DUE 1 EACH MISC MISCELLANE ONE (17:00)
--- NOTE | 2020-06-15 20:22 | PN ---
PROGRESS NOTE DATE OF SERVICE: 06/15/2020 This 49-year-old gentleman, admitted with multiple skin ulcerations, is on empiric antibiotics. Cultures showed presumptive MRSA. No chest pain. No palpitations. No fever. PHYSICAL EXAMINATION: Alert and oriented x3. Pulse is 61. Blood pressure 131/76, respiration 14, temperature 97.7, pulse ox 98% on room air. HEENT: Conjunctivae normal. NECK: No jugular venous distention. CARDIOVASCULAR SYSTEM: S1, S2 muffled. RESPIRATORY SYSTEM: Breath sounds diminished at the bases. No rhonchi. No crackles. ABDOMEN: Soft, non-tender. LEGS: Right thigh infection and cellulitis. Otherwise, genital ulceration also present. LABS: CBC within normal limits. Sodium 137, potassium 4.4. ASSESSMENT: 1. Multiple skin ulcerations in genital area as well as right thigh. Rule out sexually transmitted diseases. 2. Possible methicillin-resistant Staphylococcus aeruginosa. 3. Increased white count. 4. History of degenerative joint disease. 5. History of appendectomy. 6. History of continued ongoing nicotine dependence. 7. FULL CODE. RECOMMENDATIONS AND DISCUSSION: I recommend to continue current medications, continue with the monitoring, symptomatic treatment. Continue with vancomycin. Continue with rest of the medications, antivirals. Await STD test reports. Guarded prognosis. Further recommendations to follow. MMODL / IJN: [id number] /
[2020-06-15] MEDS: AZITHROMYCIN 500 MG TAB PO SCH (21:13)
--- NOTE | 2020-06-15 22:22 | PN ---
PROGRESS NOTE DATE OF SERVICE: 06/15/2020 REASON FOR FOLLOWUP: Right thigh and scrotal area cellulitis which is likely secondary to MRSA and penile shaft ulcer. INTERVAL HISTORY: The patient is currently afebrile. The patient is breathing comfortably. Overall right thigh area of swelling and redness has improved after drainage yesterday. The patient denies having any chest pain or shortness of breath or cough. No diarrhea. PHYSICAL EXAMINATION: Blood pressure 131/77 with a pulse of 61, temperature 97.7. He is 98% on room air. General description is a middle-aged male lying in bed in no distress. RESPIRATORY SYSTEM: Unlabored breathing. Clear to auscultation anteriorly. HEART: S1, S2. Regular rate and rhythm. ABDOMEN: Soft. No tenderness. LABS: The culture from the scrotal and thigh area is showing presumptive MRSA. Sensitivities are pending. Penile shaft HSV DNA by PCR is pending though HSV IgG . DIAGNOSTIC IMPRESSION AND PLAN: 1. Patient with right thigh and scrotal area folliculitis with positive of methicillin- resistant Staphylococcus aeruginosa, covered with vancomycin. Waiting for sensitivity to determine discharge antibiotic. 2. 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 To continue. MMODL / IJN: [id number] /
[2020-06-16] MEDS: HYDROmorphone 0.5 MG/0.5 ML SYRINGE IVP PRN ×2 (00:02→06:35)
[2020-06-16] MEDS: VANCOMYCIN 1,250 MG in SODIUM CHLORIDE 0.9% 250 ML IVPB SCH ×2 (02:14→10:09)
[2020-06-16] MEDS: HYDROcodone/APAP 5-325MG 1 EACH TAB PO PRN ×2 (02:14→10:09)
[2020-06-16] MEDS: HEPARIN SODIUM,PORCINE 5,000 UNIT/ML 1 ML VIAL SQ SCH (08:50)
[2020-06-16] MEDS: PANTOPRAZOLE 40 MG TABLET PO SCH (08:50)
[2020-06-16] MEDS: NICOTINE 14MG/24HR PATCH TRANSDERM SCH (08:50)
[2020-06-16] MEDS: valACYclovir HCL 1,000 MG TABLET PO SCH (08:51)
[2020-06-16 09:55] VITALS: BP 142/89; PULSE 71; RESP 16; TEMP 97.8
--- NOTE | 2020-06-16 13:53 | P.PN ---
Subjective Progress Note Date: 06/16/20 CHIEF COMPLAINT: Multiple skin lesions on the right thigh and scrotal area HISTORY OF PRESENT ILLNESS: Patient is followed for skin lesion on the right thigh. Showing improvement. Culture growing MRSA. Antibiotics per infectious disease. He is afebrile. PHYSICAL EXAM: VITAL SIGNS: Reviewed. GENERAL: Well-developed in no acute distress. HEENT: No sclera icterus. Extraocular movements grossly intact. Moist buccal mucosa. Head is atraumatic, normocephalic. ABDOMEN: Soft. Nondistended. Nontender. NEUROLOGIC: Alert and oriented. Cranial nerves II through XII grossly intact. Multiple skin lesions on the right thigh and scrotal area ASSESSMENT: 1. Right medial thigh, scrotal area and penile shaft skin lesions with culture growing MRSA PLAN: -Agree with antibiotics per ID -Keep area clean and dry -No surgical intervention planned -Patient can be discharged from surgical standpoint Physician [facility] [employer] Acute [facility] Registered Nurse note has been reviewed by physician. Signing provider agrees with the documented findings, assessment, and plan of care. Objective - Vital Signs Vital signs: Vital Signs Temp 97.8 F 06/16/20 09:00 Pulse 71 06/16/20 09:00 Resp 16 06/16/20 09:00 BP 142/89 06/16/20 09:00 Pulse Ox 97 06/16/20 09:00 Intake & Output 06/15/20 06/16/20 06/16/20 18:59 06:59 18:59 Intake Total 480 Balance 480 Intake: Oral 480 Other: Voiding Method Toilet # Voids 1 2 1 # Bowel Movements 1 - Labs CBC & Chem 7: 06/15/20 07:43 06/15/20 07:43 Labs: Microbiology - Last 24 Hours (Table) 06/15/20 07:45 Gram Stain - Preliminary Thigh - Right Wound Culture - Preliminary 06/12/20 23:09 Gram Stain - Final Other - Other Wound Culture - Final Methicillin resist S. aureus 06/12/20 23:09 Gram Stain - Final Thigh - Right Wound Culture - Final Methicillin resist S. aureus
--- NOTE | 2020-06-16 15:55 | PN ---
PROGRESS NOTE DATE OF SERVICE: 06/16/2020 REASON FOR FOLLOWUP: 1. Right thigh and scrotal area folliculitis likely secondary to MRSA. 2. Penile shaft ulcer. INTERVAL HISTORY: The patient is seen on rounds earlier this morning. The patient is feeling better. Breathing comfortably. Denies having any chest pain or cough. No abdominal pain. No vomiting or diarrhea. PHYSICAL EXAMINATION: Blood pressure 152/89 with a pulse of 71, temperature is 97.8, he is 97% on room air. General description is a middle-aged male, lying in bed in no distress. RESPIRATORY SYSTEM: Unlabored breathing, clear to auscultation. HEART: S1, S2. Regular rate and rhythm. ABDOMEN: Soft, no tenderness. LABS: Vancomycin trough is 15.5. DIAGNOSTIC IMPRESSION AND PLAN: 1. Patient with right thigh and scrotal area folliculitis, culture positive for MRSA. Patient is on vancomycin therapy with Bactrim prescription sent. 2. Patient has penile shaft ulcer and question of herpes. Prescription for has been sent. MMODL / IJN: [id number] /
--- NOTE | 2020-06-17 10:44 | DS ---
DISCHARGE SUMMARY DATE OF SERVICE: 06/16/2020 FINAL DIAGNOSES: 1. Multiple skin ulceration, genital area as well as right thigh, possible sexually transmitted disorders. 2. Possible MRSA. 3. Increased WBC. 4. History of DJD. 5. History of appendectomy. 6. History of continued ongoing nicotine dependence. 7. FULL CODE. DISCHARGE DISPOSITION: The patient will be discharged in a stable condition with guarded prognosis. Discharge cleared by Dr. Reina. HISTORY OF PRESENT ILLNESS: This is a 49-year-old gentleman admitted with multiple medical issues, including ulceration in the right anus, genital area. The culture showed MRSA. 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 Reactivation of the genital herpes also possibility. The patient was treated empirically and patient was improved significantly. On exam, vitals are stable. CARDIOVASCULAR: S1, S2. NERVOUS SYSTEM: No numbness or weakness. DISCHARGE ADVICE: 1. discharge diet IS cardiac. 2. Activity limited until followup. 3. Follow up with Dr. Mccallum in 2-3 days. MEDICATIONS: 1. Bactrim DS 1 p.o. b.i.d. for 10 days. 2. Valtrex 1000 mg p.o. b.i.d. for 1 week. 3. Tylenol p.r.n. Follow up with Dr. Reina as recommended. MMODL / IJN: [id number] /
== END 2020-06-16 13:23 | disposition home or self-care (01) ==
LOC: EC 15:19 → 1SOBS 19:05 → INTOOBSV 06-15 08:11 → OBSVTOIN 06-15 08:11 → UNDODISIN 06-16 13:23
PROVIDERS: ADMIT Hospitalist; ATTEND Hospitalist
DX: L03.116 Cellulitis of left lower limb (principal); N48.5 Ulcer of penis; N49.2 Inflammatory disorders of scrotum; B95.62 Methicillin resistant Staphylococcus aureus infection as the cause of diseases classified elsewhere; M19.90 Unspecified osteoarthritis, unspecified site; Z98.890 Other specified postprocedural states; Z79.899 Other long term (current) drug therapy; D72.829 Elevated white blood cell count, unspecified; F17.200 Nicotine dependence, unspecified, uncomplicated; Z88.9 Allergy status to unspecified drugs, medicaments and biological substances; Z79.891 Long term (current) use of opiate analgesic
CPT/HCPCS: 96366 ×6; 96367 ×2; 96372 ×2; 96375; 96376 ×4; 96365; 99284; 10060; 36415; 93005; 87529; 80053; 80048 ×3; 86694; 85652; 85025 ×4; 80202 ×2; 86140; 86695; 86696; 87491; 87591; 86780; 87070 ×2; 87205 ×2; 87077; 87186; 87390; 71045; G0378 ×5; S4990 ×5; J3370 ×5; J1644 ×2; J0456 ×2; J2001; J0295 ×2; J1170 ×4

== ENCOUNTER 2020-12-27 18:46 | Emergency (ER) | payer OTHER ==
[2020-12-27 18:58] VITALS: BP 148/81; PULSE 88; RESP 20; TEMP 98.3
--- NOTE | 2020-12-27 19:28 | ED ---
General Adult HPI - General Chief complaint: Weakness Stated complaint: Stroke Symptoms,Weakness Time Seen by Provider: 12/27/20 19:03 Source: patient Mode of arrival: ambulatory Limitations: no limitations - History of Present Illness Initial comments: Dictation was produced using [employer] dictation software. please excuse any grammatical, word or spelling errors. Chief Complaint: 50-year-old male presents to the emergency department for right-sided paresthesias History of Present Illness: 80-year-old male he denies any significant medical comorbidities. Presents to the emergency department for right-sided paresthesias. Starting on Monday he had an episode of chest pain and shortness of breath. That all resolved. Yesterday patient be felt like he began having paresthesias to his right upper extremity right lower extremity right face. He states that he notices a facial droop. Patient also noticed that he was clumsy with his right hand. Patient is concerned about stroke because his family members had strokes. She denies any history of strokes. Denies any headache The ROS documented in this emergency department record has been reviewed and confirmed by me. Those systems with pertinent positive or negative responses have been documented in the HPI. All other systems are other negative and/or noncontributory. PHYSICAL EXAM: General Impression: Alert and oriented x3, not in acute distress HEENT: Normocephalic atraumatic, extra-ocular movements intact, pupils equal and reactive to light bilaterally, mucous membranes moist. Cardiovascular: Heart regular rate and rhythm Chest: Able to complete full sentences, no retractions, no tachypnea Abdomen: abdomen soft, non-tender, non-distended, no organomegaly Musculoskeletal: Pulses present and equal in all extremities, no peripheral edema Motor: no focal deficits noted Neurological: CN II-XII grossly intact, no focal motor or sensory deficits noted, NIH of 1 for sensory deficit to light touch of the right upper extremity, right lower face and right lower extremity. He states he still able to feel light touch over feels different compared to the left side. No appreciable facial droop. Skin: Intact with no visualized rashes Psych: Normal affect and mood ED course: 50-year-old male presents with focal neurologic deficits starting at mid day yesterday. Patient outside the TPA window. Vital signs upon arrival are within acceptable limits. Patient expressed to me at 8:40 PM that he would like to sign out AGAINST MEDICAL ADVICE. Discussed with patient that his workup is incomplete. Imaging studies, CT of the brain, CT angios the head and neck and chest x-ray were briefly reviewed showing no obvious abnormalities pending radiology read. Laboratory evaluation is unremarkable. He absolutely wants to be discharged because he has a court date tomorrow regarding the custody of his children. Discussed the patient and recommended he be admitted to the hospital for neurology evaluation however he feels as though this court appearance is much more important than his health. He understands that he could suffer from long- term consequences including permanent sensory deficit to his right side. He is also told that his symptoms could get worse and causing permanent disability including even . he understands the risk of signing out AGAINST MEDICAL ADVICE. Risks, Benefits, and Treatment alternatives were discussed in detail with the patient. The patient is alert and oriented X 3 and has the capacity to make an informed decision. The risks of increased morbidity including the possibly of were explained to and understood by the patient who is choosing to leave against medical advice. The patient is encouraged to return any time should they want further treatment and diagnostic investigation. EKG interpretation: Ventricular rate 85, normal sinus rhythm, MT interval 146, QRS 76, QTC 449. No MT prolongation, no QTC prolongation, no ST or T-wave changes noted. Overall, this EKG is unremarkable - Related Data Home Medications Medication Instructions Recorded Confirmed No Known Home Medications 12/27/20 12/27/20 Allergies Allergy/AdvReac Type Severity Reaction Status Date / Time barium iodide Allergy Anaphylaxis Verified 12/27/20 19:23 barium sulfate Allergy Anaphylaxis Verified 12/27/20 19:23 Review of Systems ROS Statement: Those systems with pertinent positive or pertinent negative responses have been documented in the HPI. ROS Other: All systems not noted in ROS Statement are negative. Past Medical History Past Medical History: No Reported History History of Any Multi-Drug Resistant Organisms: None Reported Date of last positivie culture/infection: 06/12/20 MDRO Source:: Right Thigh Past Surgical History: Appendectomy Past Anesthesia/Blood Transfusion Reactions: No Reported Reaction Past Psychological History: No Psychological Hx Reported Smoking Status: Current every day smoker Past Alcohol Use History: None Reported Past Drug Use History: None Reported General Exam Limitations: no limitations Course Vital Signs 12/27/20 18:55 Temperature 98.3 F Pulse Rate 88 Respiratory 20 Rate Blood Pressure 148/81 O2 Sat by Pulse 98 Oximetry Medical Decision Making - Lab Data Result diagrams: 12/27/20 19:47 12/27/20 19:47 Lab Results 12/27/20 12/27/20 12/27/20 Range/Units 19:47 19:47 19:47 WBC 7.0 (3.8-10.6) k/uL RBC 5.25 (4.30-5.90) m/uL Hgb 15.7 (13.0-17.5) gm/dL Hct 45.6 (39.0-53.0) % MCV 86.9 (80.0-100.0) fL MCH 29.9 (25.0-35.0) pg MCHC 34.4 (31.0-37.0) g/dL RDW 13.3 (11.5-15.5) % Plt Count 331 (150-450) k/uL MPV 6.9 Neutrophils % 65 % Lymphocytes % 23 % Monocytes % 5 % Eosinophils % 4 % Basophils % 1 % Neutrophils # 4.5 (1.3-7.7) k/uL Lymphocytes # 1.6 (1.0-4.8) k/uL Monocytes # 0.4 (0-1.0) k/uL Eosinophils # 0.3 (0-0.7) k/uL Basophils # 0.1 (0-0.2) k/uL PT 10.2 (9.0-12.0) sec INR 0.9 (<1.2) APTT 24.2 (22.0-30.0) sec Sodium 141 (137-145) mmol/L Potassium 4.2 (3.5-5.1) mmol/L Chloride 109 H (98-107) mmol/L Carbon Dioxide 26 (22-30) mmol/L Anion Gap 6 mmol/L BUN 15 (9-20) mg/dL Creatinine 0.90 (0.66-1.25) mg/dL Est GFR (CKD-EPI)AfAm >90 (>60 ml/min/1.73 sqM) Est GFR (CKD-EPI)NonAf >90 (>60 ml/min/1.73 sqM) Glucose 101 H (74-99) mg/dL Calcium 8.8 (8.4-10.2) mg/dL Magnesium 2.0 (1.6-2.3) mg/dL Troponin I (0.000-0.034) ng/mL Coronavirus (PCR) (Not Detectd) 12/27/20 12/27/20 Range/Units 19:47 20:25 WBC (3.8-10.6) k/uL RBC (4.30-5.90) m/uL Hgb (13.0-17.5) gm/dL Hct (39.0-53.0) % MCV (80.0-100.0) fL MCH (25.0-35.0) pg MCHC (31.0-37.0) g/dL RDW (11.5-15.5) % Plt Count (150-450) k/uL MPV Neutrophils % % Lymphocytes % % Monocytes % % Eosinophils % % Basophils % % Neutrophils # (1.3-7.7) k/uL Lymphocytes # (1.0-4.8) k/uL Monocytes # (0-1.0) k/uL Eosinophils # (0-0.7) k/uL Basophils # (0-0.2) k/uL PT (9.0-12.0) sec INR (<1.2) APTT (22.0-30.0) sec Sodium (137-145) mmol/L Potassium (3.5-5.1) mmol/L Chloride (98-107) mmol/L Carbon Dioxide (22-30) mmol/L Anion Gap mmol/L BUN (9-20) mg/dL Creatinine (0.66-1.25) mg/dL Est GFR (CKD-EPI)AfAm (>60 ml/min/1.73 sqM) Est GFR (CKD-EPI)NonAf (>60 ml/min/1.73 sqM) Glucose (74-99) mg/dL Calcium (8.4-10.2) mg/dL Magnesium (1.6-2.3) mg/dL Troponin I <0.012 (0.000-0.034) ng/mL Coronavirus (PCR) Not Detected (Not Detectd) Disposition Clinical Impression: CVA (cerebral vascular accident) Disposition: Left Against Medical Advice Condition: Fair Instructions (If sedation given, give patient instructions): Stroke (DC) Referrals: None,Stated [Primary Care Provider] - 1-2 days
[2020-12-27 19:54] LABS: Basophils # (A) 0.1 k/uL (0-0.2); Basophils % (A) 1 %; Eosinophils # (A) 0.3 k/uL (0-0.7); Eosinophils % (A) 4 %; HCT 45.6 % (39.0-53.0); HGB 15.7 gm/dL (13.0-17.5); Lymphocytes # (A) 1.6 k/uL (1.0-4.8); Lymphocytes % (A) 23 %; MCH 29.9 pg (25.0-35.0); MCHC 34.4 g/dL (31.0-37.0); MCV 86.9 fL (80.0-100.0); Mean Platelet Volume 6.9; Monocytes # (A) 0.4 k/uL (0-1.0); Monocytes % (A) 5 %; Neutrophils # (A) 4.5 k/uL (1.3-7.7); Neutrophils % (A) 65 %; Platelet Count 331 k/uL (150-450); RBC 5.25 m/uL (4.30-5.90); RDW 13.3 % (11.5-15.5)
[2020-12-27 20:05] LABS: African American GFR (CKD) >90 (>60 ml/min/1.73 sqM); Anion Gap 6 mmol/L; Blood Urea Nitrogen 15 mg/dL (9-20); Calcium 8.8 mg/dL (8.4-10.2); Carbon Dioxide 26 mmol/L (22-30); Chloride 109 mmol/L (98-107); Glucose 101 mg/dL (74-99); INR 0.9 (<1.2); Non-African American GFR(CKD) >90 (>60 ml/min/1.73 sqM); Partial Thromboplastin Time 24.2 sec (22.0-30.0); Potassium 4.2 mmol/L (3.5-5.1); Prothrombin Time 10.2 sec (9.0-12.0); Sodium 141 mmol/L (137-145)
[2020-12-27] MEDS ORDERED: ASPIRIN 81 MG PO STA (20:47)
--- NOTE | 2020-12-27 21:18 | CT ---
EXAM: CT brain wo con CLINICAL HISTORY: Right-sided paresthesia. COMPARISON: None TECHNIQUE: Contiguous axial noncontrast images of the brain were obtained. Coronal and sagittal refor mats were generated and reviewed. Automated dose control was used for this exam. FINDINGS: There is no evidence for intracranial hemorrhage, mass effect or midline shift. The white matter is g rossly preserved. Ventricular size and configuration is within normal limits for degree of parenchymal volume. The paranasal sinuses are clear. The mastoid air cells are clear. No evidence for calvarial fracture. IMPRESSION: No acute intracranial abnormality.
--- NOTE | 2020-12-27 21:19 | XR ---
EXAMINATION TYPE: XR chest 1V portable DATE OF EXAM: 12/27/2020 COMPARISON: 06/12/2020 HISTORY: Right-sided paresthesia TECHNIQUE: [place] view FINDINGS: Heart is normal. Lungs are clear of infiltrate. There is no heart failure. There are no hil ar masses. Costophrenic angles are clear. There are chest leads. There is possible granuloma in the l eft midlung. This is relatively dense and measures 6 mm. IMPRESSION: No active cardiopulmonary disease. No adverse change.
--- NOTE | 2020-12-27 21:22 | CT ---
EXAM: CTA HEAD AND NECK INDICATION: Right-sided numbness and weakness. COMPARISON: None. TECHNIQUE: CTA of the head and neck were performed with multiplanar and MIP reformats generated and r jabieriewed. Stenosis evaluation is based on [place] Symptomatic Carotid Endarterectomy Trial (CIPRIANO CET). intravenous contrast was administered. FINDINGS: There is mild atherosclerosis of the aortic arch. Otherwise normal three-vessel branching of the aort a. There is no evidence of high-grade stenosis, dissection or aneurysm seen in the bilateral common c arotid, cervical internal carotid and vertebral arteries. There is no evidence of high-grade stenosis, dissection or aneurysm in the intracranial internal rhoades tid arteries, anterior, middle and posterior cerebral arteries as well as in the imaged vertebral and basilar arteries. The communicating arteries are unremarkable. IMPRESSION: No significant abnormality of the CTA head/neck.
== END 2020-12-27 20:50 | disposition left against medical advice (07) ==
LOC: EC 18:46
DX: I63.9 Cerebral infarction, unspecified (principal); R29.810 Facial weakness; F17.200 Nicotine dependence, unspecified, uncomplicated; Z53.21 Procedure and treatment not carried out due to patient leaving prior to being seen by health care provider; Z90.49 Acquired absence of other specified parts of digestive tract
CPT/HCPCS: 36415; 93005; 80048; 83735; 84484; 85025; 85610; 85730; 87635; 71045; 70496; 70450; 70498; 99285; Q9967

== ENCOUNTER 2024-03-19 00:20 | Observation (INO) | payer OTHER ==
[2024-03-19] MEDS ORDERED: HYDROmorphone 1 MG/ML 1 ML SYRINGE ONE ×2 (02:26→11:42)
[2024-03-19] MEDS ORDERED: IBUPROFEN 400 MG TAB ONE (07:59)
[2024-03-19] MEDS ORDERED: HYDROcodone/APAP 5-325MG 1 EACH TAB ONE (08:50)
[2024-03-19] MEDS ORDERED: HEPARIN SODIUM,PORCINE 5,000 UNIT/ML 1 ML VIAL ONE (23:10)
[2024-03-19] MEDS ORDERED: TEMAZEPAM 15 MG CAP ONE (23:11)
[2024-03-19] MEDS ORDERED: VANCOMYCIN 1,000 MG VIAL ONE (23:59)
[2024-03-19] MEDS ORDERED: VANCOMYCIN 500 MG VIAL ONE (23:59)
[2024-03-19] MEDS ORDERED: SODIUM CHLORIDE 0.9% 500 ML BAG ONE (23:59)
[2024-03-20] MEDS ORDERED: PANTOPRAZOLE 40 MG TABLET PO ONE (09:12)
[2024-03-20] MEDS ORDERED: HEPARIN SODIUM,PORCINE 5,000 UNIT/ML 1 ML VIAL ONE (09:12)
[2024-03-20] MEDS ORDERED: HYDROcodone/APAP 5-325MG 1 EACH TAB ONE ×2 (09:23→17:12)
[2024-03-20] MEDS ORDERED: HYDROmorphone 0.5 MG/0.5 ML SYRINGE ONE (20:37)
[2024-03-20] MEDS ORDERED: SODIUM CHLORIDE 0.9% 250 ML BAG ONE (23:59)
[2024-03-20] MEDS ORDERED: VANCOMYCIN 500 MG VIAL ONE (23:59)
[2024-03-20] MEDS ORDERED: VANCOMYCIN 1,000 MG VIAL ONE (23:59)
[2024-03-21] MEDS ORDERED: HYDROmorphone 0.5 MG/0.5 ML SYRINGE ONE ×2 (09:15→19:35)
[2024-03-21] MEDS ORDERED: HEPARIN SODIUM,PORCINE 5,000 UNIT/ML 1 ML VIAL ONE (10:57)
[2024-03-21] MEDS ORDERED: PANTOPRAZOLE 40 MG TABLET PO ONE (10:57)
[2024-03-21] MEDS ORDERED: SODIUM CHLORIDE 0.9% 250 ML BAG ONE (23:59)
[2024-03-21] MEDS ORDERED: VANCOMYCIN 500 MG VIAL ONE (23:59)
[2024-03-21] MEDS ORDERED: VANCOMYCIN 1,000 MG VIAL ONE (23:59)
[2024-03-22] MEDS ORDERED: HEPARIN SODIUM,PORCINE 5,000 UNIT/ML 1 ML VIAL ONE (20:38)
[2024-03-22] MEDS ORDERED: HYDROmorphone 0.5 MG/0.5 ML SYRINGE ONE (21:36)
[2024-03-22] MEDS ORDERED: SODIUM CHLORIDE 0.9% 250 ML BAG ONE (23:59)
[2024-03-22] MEDS ORDERED: VANCOMYCIN 1,000 MG VIAL ONE (23:59)
[2024-03-22] MEDS ORDERED: VANCOMYCIN 500 MG VIAL ONE (23:59)
[2024-03-23] MEDS ORDERED: diphenhydrAMINE 25 MG CAP ONE ×3 (05:53→21:09)
[2024-03-23] MEDS ORDERED: PANTOPRAZOLE 40 MG TABLET PO ONE (08:12)
[2024-03-23] MEDS ORDERED: HYDROmorphone 0.5 MG/0.5 ML SYRINGE ONE ×2 (10:20→21:31)
[2024-03-23] MEDS ORDERED: HYDROcodone/APAP 5-325MG 1 EACH TAB ONE (17:58)
[2024-03-23] MEDS ORDERED: VANCOMYCIN 1,000 MG VIAL ONE (23:59)
[2024-03-23] MEDS ORDERED: SODIUM CHLORIDE 0.9% 250 ML BAG ONE (23:59)
[2024-03-23] MEDS ORDERED: VANCOMYCIN 500 MG VIAL ONE (23:59)
[2024-03-24] MEDS ORDERED: HYDROmorphone 0.5 MG/0.5 ML SYRINGE ONE ×3 (08:01→19:56)
[2024-03-24] MEDS ORDERED: diphenhydrAMINE 25 MG CAP ONE ×2 (13:26→19:56)
[2024-03-24] MEDS ORDERED: SODIUM CHLORIDE 0.9% 250 ML BAG ONE (23:59)
[2024-03-24] MEDS ORDERED: VANCOMYCIN 1,000 MG VIAL ONE (23:59)
[2024-03-24] MEDS ORDERED: VANCOMYCIN 500 MG VIAL ONE (23:59)
[2024-03-25] MEDS ORDERED: HYDROmorphone 0.5 MG/0.5 ML SYRINGE ONE ×3 (04:55→14:56)
[2024-03-25] MEDS ORDERED: diphenhydrAMINE 25 MG CAP ONE ×2 (04:55→09:04)
--- NOTE | 2024-04-24 15:23 | CT ---
EXAM: CT Pelvis With Intravenous Contrast CLINICAL HISTORY: pt popped pimple near groin & it won't stop leaking. TECHNIQUE: Axial computed tomography images of the pelvis with intravenous contrast. CTDI is 15.8 mGy and DLP is 750.8 mGy-cm. This CT exam was performed using one or more of the following dose reduction techniques: automated exposure control, adjustment of the mA and/or kV according to patient size, and/or use of iterative reconstruction technique. COMPARISON: No relevant prior studies available. FINDINGS: Bowel:No evidence of bowel obstruction. Diverticulosis without diverticulitis. Appendix:Appendix not identified. Bladder:Unremarkable. No mass. Reproductive: Small scrotal hydroceles. Bones/joints:No acute fracture or dislocation. Facet degeneration in the lumbar spine. Soft tissues: Extensive subcutaneous fat stranding within the right inguinal region with single punctate focus of subcutaneous gas. No soft tissue fluid collection to suggest abscess. Vasculature:Unremarkable. No lower abdominal aortic aneurysm. Lymph nodes: Mildly prominent right inguinal lymph node suggesting reactive lymphadenopathy. IMPRESSION: Extensive subcutaneous fat stranding within the right inguinal region with single punctate focus of subcutaneous gas. Appearance is concerning for cellulitis. No visible abscess. Radiologist: Omar Turcios M.D. Electronically Signed: 03/19/24 03:27 Study ready at 01:49 and initial results transmitted at 03:27 [facility]
--- NOTE | 2024-05-02 14:40 | CONS ---
CONSULTATION REASON FOR CONSULTATION: Right groin abscess. HISTORY OF PRESENT ILLNESS: The patient is a 53-year-old male with a past medical history significant for MRSA skin and soft tissue infection, presenting to the ER concerning for increasing pain, swelling, redness to the right groin area, which apparently started on Monday, i.e., about 4 days before presentation to hospital. The patient mentions it started as a pimple and significantly increased in size and then started to drain. The patient's girl friend, who apparently is an RN, tried to help him drain this thing out and did have significant amount of purulent drainage. He did have worsening pain described to me to be sharp, about 9/10 without any radiation. This was associated swelling and drainage for which the patient presented to the hospital. Did have some chills, but denies high-grade fever. The patient was diagnosed with right groin abscess and cellulitis, started on vancomycin, admitted to the hospital. Infectious Disease was consulted for further management of antibiotic therapy. REVIEW OF SYSTEMS: Positive points have been mentioned in HPI. Rest of systems negative. PAST MEDICAL HISTORY: Significant for MRSA skin and soft infection and chronic pain. PAST SURGICAL HISTORY: Reviewed. SOCIAL HISTORY: Reviewed. FAMILY HISTORY: Reviewed. MEDICATIONS: The patient is currently on: 1. Heparin subcu. 2. Vancomycin, pharmacy to dose. 3. [place]. PHYSICAL EXAMINATION: VITAL SIGNS: Blood pressure 136/80, pulse of 99, temperature of 98. GENERAL DESCRIPTION: He is a middle-aged male lying in bed in no distress. HEENT: Shows no pallor or scleral icterus. Oral mucous membranes are dry. NECK: Trachea central. No thyromegaly. LUNGS: Unlabored breathing. Clear to auscultation anteriorly. HEART: S1, S2. Regular rate and rhythm. ABDOMEN: Soft, no tenderness. No guarding. No rigidity. EXTREMITIES: No edema of feet. Examination of right groin area did have an area of swelling, redness, minimal drainage. NEUROLOGIC: The patient is awake, alert, oriented x3. Mood and affect normal. LABS: Cultures currently pending. Creatinine 0.98. White count 8.72. DIAGNOSTIC IMPRESSION AND PLAN: 1. The patient with right groin abscess with spontaneous drainage. Previous history of Pseudomonas infection, likely related to MRSA . 2. We will wait for the culture to finalize. 3. Vancomycin, pharmacy to dose, target of 15. 4. We will follow his clinical condition and culture to further adjust medication if needed. Thank you for this consultation. We will follow this patient along with you. MMSUSHILL / IJN: [id number] /
--- NOTE | 2024-05-02 14:40 | PN ---
PROGRESS NOTE DATE OF SERVICE: 03/21/2024 LOCATION: [facility]. REASON FOR FOLLOWUP: Right groin abscess and cellulitis. INTERVAL HISTORY: The patient is afebrile. Breathing comfortably. No chest pain, shortness of breath, or cough. No abdominal pain or any worsening pain to the right groin area. PHYSICAL EXAMINATION: VITAL SIGNS: Blood pressure is 141/90 with a pulse of 74, temperature 98.8. GENERAL DESCRIPTION: This is a middle-aged male, lying in bed, in no distress. RESPIRATORY SYSTEM: Unlabored breathing. Clear to auscultation anteriorly. HEART: S1, S2. Regular rate and rhythm. ABDOMEN: Soft. Right groin area did have area of swelling and redness, some induration. No drainage. LABORATORY DATA: White count 8.7, creatinine 0.98. CT concerning for possible phlegmon and air. DIAGNOSTIC IMPRESSION AND PLAN: The patient with right groin abscess and cellulitis. Surgery has seen the patient, recommending no surgical drainage. advised to anum the area of the redness. For now, continue with vancomycin. Adjusting antibiotic further based on culture and monitor clinical course closely. MMODL / IJN: [id number] /
--- NOTE | 2024-05-02 14:40 | CONS ---
CONSULTATION REASON FOR CONSULTATION: Right groin abscess. HISTORY OF PRESENT ILLNESS: This is a gentleman who had spontaneous drainage of a right groin abscess 4 days ago. The patient was treated on IV antibiotics. The patient states the induration has improved. He still has some drainage from the abscess. PHYSICAL EXAMINATION: VITAL SIGNS: Stable. ABDOMEN: Soft, nontender. There is evidence of a chronic draining right groin abscess. Induration and cellulitis on the thigh has improved over the last 48 hours. There is some induration of the right groin; however, there is no definite abscess. The patient will continue to receive IV antibiotics. We will follow. If he develops signs of an abscess, he will undergo incision and drainage. MMODL / IJN: [id number] /
--- NOTE | 2024-05-02 14:41 | PN ---
PROGRESS NOTE REASON FOR FOLLOWUP: Right groin abscess. INTERVAL HISTORY: The patient is afebrile. He is breathing comfortably. He mentions right groin pain and swelling has slightly decreased. Did have some drainage. No chest pain, shortness of breath or cough. No abdominal pain or diarrhea. PHYSICAL EXAMINATION: VITAL SIGNS: Blood pressure 141/90, pulse of 74, temperature 98.3. GENERAL DESCRIPTION: This is a middle-aged male, lying in bed, in no distress. RESPIRATORY SYSTEM: Unlabored breathing. Clear to auscultation anteriorly. HEART: S1, S2. Regular rate and rhythm. ABDOMEN: Soft. No tenderness. Right groin did have area of swelling, redness, but redness has slightly decreased. Minimal drainage. LABORATORY DATA: Creatinine 0.91. White count is 7.58. DIAGNOSTIC IMPRESSION AND PLAN: The patient with right groin abscess with spontaneous drainage. Waiting for the culture to finalize. Continue with vancomycin and monitor clinical course closely. Questions and concerns were answered. MMODL / IJN: [id number] /
--- NOTE | 2024-05-02 14:41 | PN ---
PROGRESS NOTE DATE OF SERVICE: 03/22/2024 The patient remains stable. He has had a small amount of drainage from his groin abscess area. His cellulitis has improved. The patient continued to receive IV antibiotics. No plan for drainage is being considered at this point. MMODL / IJN: [id number] /
--- NOTE | 2024-05-02 14:42 | PN ---
PROGRESS NOTE DATE OF SERVICE: 03/23/2024 REASON FOR FOLLOWUP: Right groin abscess cellulitis. INTERVAL COURSE: Patient is afebrile. Still complaining of pain and discomfort to the right groin area. Overall drainage has decreased. Has been complaining of bump on bilateral upper extremity as well in the mouth. No drainage. No nausea, no vomiting. No abdominal pain or diarrhea. PHYSICAL EXAMINATION: VITAL SIGNS: Blood pressure 155/89, pulse of 65, temperature of 98. GENERAL DESCRIPTION: Middle-aged male, lying in bed, in no distress. RESPIRATORY SYSTEM: Unlabored breathing, clear to auscultation anteriorly. HEART: S1, S2. Regular rate and rhythm. ABDOMEN: Soft. No tenderness. RIGHT GROIN: The swelling and redness about the same. No drainage was noticed. LABS: Cultures, currently pending. DIAGNOSTIC IMPRESSION AND PLAN: Patient with right groin abscess, cellulitis. Surgery saw the patient, recommending no surgical drainage. We are still waiting for the culture to finalize with the previous history of MRSA, more likely dealing with MRSA infection. We will wait for the culture to finalize. Continue with vancomycin and monitor clinical course closely. MMODL / IJN: [id number] /
--- NOTE | 2024-05-02 14:43 | PN ---
PROGRESS NOTE DATE OF SERVICE: 03/24/2024 LOCATION: [facility] [place]. REASON FOR FOLLOWUP: Right groin abscess and cellulitis, MRSA. INTERVAL HISTORY: The patient is afebrile. The patient is breathing comfortably. Mentions right groin pain and swelling have slightly decreased. Drainage has decreased. No nausea. No vomiting. No abdominal pain. No diarrhea. PHYSICAL EXAMINATION: VITAL SIGNS: Blood pressure is 130/88, pulse of 70, temperature 97.4. GENERAL DESCRIPTION: This is a middle-aged male, lying in bed, in no distress. RESPIRATORY SYSTEM: Unlabored breathing. Clear to auscultation anteriorly. HEART: S1, S2. Regular rate and rhythm. ABDOMEN: Soft. No tenderness. RIGHT GROIN: Swelling and redness have slightly decreased. LABS: White count is 9.38. Creatinine 0.81. Vanco trough was in the low side. DIAGNOSTIC IMPRESSION AND PLAN: The patient with right groin abscess and cellulitis. Slow clinical response possibly to low vancomycin trough. Pharmacy needs to adjust dose to keep the trough around 15. Continue vancomycin. Waiting for final sensitivity to determine discharge on antibiotics. Continue supportive care. MMODL / IJN: [id number] /
--- NOTE | 2024-05-02 14:44 | PN ---
PROGRESS NOTE DATE OF SERVICE: 03/25/2024 LOCATION: [facility]. REASON FOR FOLLOWUP: Right groin abscess, MRSA. INTERVAL HISTORY: The patient is afebrile. He is breathing comfortably. No abdominal pain. Right groin swelling and redness have slightly decreased. No further drainage. Denies any chest pain, shortness of breath, or cough. PHYSICAL EXAMINATION: VITAL SIGNS: Stable. GENERAL DESCRIPTION: This is a middle-aged male, lying in bed, in no distress. RESPIRATORY SYSTEM: Unlabored breathing. Clear to auscultation anteriorly. HEART: S1, S2. Regular rate and rhythm. ABDOMEN: Soft, no tenderness. Right groin overall swelling and redness have decreased in intensity. LABS: His creatinine is normal. DIAGNOSTIC IMPRESSION AND PLAN: The patient has right groin abscess secondary to methicillin-resistant Staphylococcus aureus that was not drained. He will benefit from a short course of IV daptomycin on discharge. Discussed with the admitting team and close outpatient followup. MMODL / IJN: [id number] /
== END 2024-03-25 18:00 | disposition home or self-care (01) ==
LOC: 6NMEDSUR 00:20
PROVIDERS: ADMIT Emergency Medicine; ATTEND Emergency Medicine
DX: L02.214 Cutaneous abscess of groin (principal); B95.62 Methicillin resistant Staphylococcus aureus infection as the cause of diseases classified elsewhere; L03.314 Cellulitis of groin; L73.2 Hidradenitis suppurativa; I80.8 Phlebitis and thrombophlebitis of other sites; F41.9 Anxiety disorder, unspecified; G89.29 Other chronic pain
CPT/HCPCS: 36410; 72193; 76937; 87040; 87070; 87205

== ENCOUNTER 2024-05-03 15:15 | Emergency (ER) | payer OTHER ==
[2024-05-03 15:29] VITALS: TEMP 97.9
--- NOTE | 2024-05-03 15:41 | ED ---
General Adult HPI - General Chief complaint: Skin/Abscess/Foreign Body Stated complaint: Spider bite Time Seen by Provider: 05/03/24 15:32 Source: patient, RN notes reviewed, old records reviewed Mode of arrival: ambulatory Limitations: no limitations - History of Present Illness Initial comments: 53-year-old male presenting for evaluation of right thumb pain and swelling. Patient had noticed either a spider bite or abscess that began on the dorsal surface of the right thumb. Patient has no pain with range of motion. He states that it came to ahead and did burst with purulent drainage. No fever. No systemic symptoms. - Related Data Previous Rx's Medication Instructions Recorded Cephalexin [Keflex] 500 mg PO Q6HR 10 Days #40 cap 05/03/24 Sulfamethox-Tmp 800-160Mg [Bactrim 1 tab PO Q12HR #28 tab 05/03/24 DS 800-160 mg] Allergies Allergy/AdvReac Type Severity Reaction Status Date / Time barium iodide Allergy Anaphylaxis Verified 05/03/24 15:29 barium sulfate Allergy Anaphylaxis Verified 05/03/24 15:29 Review of Systems ROS Statement: Those systems with pertinent positive or pertinent negative responses have been documented in the HPI. ROS Other: All systems not noted in ROS Statement are negative. Past Medical History Past Medical History: No Reported History Additional Past Medical History / Comment(s): MRSA History of Any Multi-Drug Resistant Organisms: MRSA Date of last positivie culture/infection: 03/21/24 MDRO Source:: WOUND Past Surgical History: Appendectomy, Orthopedic Surgery Past Anesthesia/Blood Transfusion Reactions: No Reported Reaction Past Psychological History: No Psychological Hx Reported Smoking Status: Current every day smoker Past Alcohol Use History: None Reported Past Drug Use History: None Reported General Exam Limitations: no limitations General appearance: alert, in no apparent distress Head exam: Present: atraumatic, normocephalic Eye exam: Present: normal appearance, PERRL Respiratory exam: Absent: respiratory distress Cardiovascular Exam: Present: regular rate, normal rhythm GI/Abdominal exam: Absent: distended Extremities exam: Present: other (Draining abscess dorsal surface right thumb. There is no pain with range of motion. There is some surrounding cellulitis. This is freely draining. No fluctuance.) Course Vital Signs 05/03/24 15:26 Temperature 97.9 F Pulse Rate 94 Respiratory 20 Rate Blood Pressure 136/94 O2 Sat by Pulse 97 Oximetry Medical Decision Making - Medical Decision Making Was pt. sent in by a medical professional or institution (JIMMIE Cesar, RADIATION ENGINEER, urgent care, hospital, or intermediate...) When possible be specific @ -No Did you speak to anyone other than the patient for history (EMS, parent, family, police, friend...)? What history was obtained from this source @ -No Did you review nursing and triage notes (agree or disagree)? Why? @ -I reviewed and agree with nursing and triage notes Were old charts reviewed (outside hosp., previous admission, EMS record, old EKG, old radiological studies, urgent care reports/EKG's, intermediate records)? Report findings @ -No old charts were reviewed Differential Diagnosis: Tenosynovitis, abscess, cellulitis, folliculitis EKG interpreted by me (3pts min.). @ -As above X-rays interpreted by me (1pt min.). @ -None done CT interpreted by me (1pt min.). @ -None done U/S interpreted by me (1pt. min.). @ -None done What testing was considered but not performed or refused? (CT, X-rays, U/S, labs)? Why? @ -None What meds were considered but not given or refused? Why? @ -None Did you discuss the management of the patient with other professionals (professionals i.e. JIMMIE Cesar, RADIATION ENGINEER, lab, RT, psych nurse, social science instructor, electronics installer, teacher, chief commercial officer, shoe parts caser)? Give summary @ -No Was smoking cessation discussed for >3mins.? @ -No Was critical care preformed (if so, how long)? @ -No Were there social determinants of health that impacted care today? How? (Homelessness, low income, unemployed, alcoholism, drug addiction, transportation, low edu. Level, literacy, decrease access to med. care, senior living, rehab)? @ -No Was there de-escalation of care discussed even if they declined (Discuss DNR or withdrawal of care, Hospice)? DNR status @ -No What co-morbidities impacted this encounter? (DM, HTN, Smoking, COPD, CAD, Cancer, CVA, ARF, Chemo, Hep., AIDS, mental health diagnosis, sleep apnea, morbid obesity)? @ -None Was patient admitted / discharged? Hospital course, mention meds given and route, prescriptions, significant lab abnormalities, going to OR and other pertinent info. @ -[h 53-year-old male with small abscess to the dorsal surface of the right thumb. There is normal range of motion both passive and active. No fever. This is freely draining. I did instruct the patient on warm compresses, oral antibiotics and strict return parameters. Undiagnosed new problem with uncertain prognosis? @ -No Drug Therapy requiring intensive monitoring for toxicity (Heparin, Nitro, Insulin, Cardizem)? @ -No Were any procedures done? @ -No Diagnosis/symptom? @ -Hand abscess Acute, or Chronic, or Acute on Chronic? @ -[Acute Uncomplicated (without systemic symptoms) or Complicated (systemic symptoms)? @ -Default Side effects of treatment? @ -No Exacerbation, Progression, or Severe Exacerbation? @ -No Poses a threat to life or bodily function? How? (Chest pain, [place], [place], pneumonia, PE, COPD, DKA, ARF, appy, cholecystitis, CVA, Diverticulitis, Homicidal, Suicidal, threat to staff... and all critical care pts) @ -Low risk at this time Disposition Clinical Impression: Abscess, Cellulitis Disposition: HOME SELF-CARE Condition: Good Instructions (If sedation given, give patient instructions): Abscess (ED) Prescriptions: Sulfamethox-Tmp 800-160Mg [Bactrim DS 800-160 mg] 1 tab PO Q12HR #28 tab Cephalexin [Keflex] 500 mg PO Q6HR 10 Days #40 cap Is patient prescribed a controlled substance at d/c from ED?: No Referrals: None,Stated [Primary Care Provider] - 1-2 days Time of Disposition: 15:41
[2024-05-03 16:15] VITALS: BP 157/86; PULSE 99; RESP 18
== END 2024-05-03 16:15 | disposition home or self-care (01) ==
LOC: EC 15:15
CPT/HCPCS: 99283